=== PATIENT | male | born 1935 | race Caucasian/White ===

== ENCOUNTER 2016-11-18 14:07 | Inpatient (IN) ==
[2016-11-18] MEDS ORDERED: Ondansetron 4 MG/2 ML VIAL IVP PRN (16:44)
[2016-11-18] MEDS ORDERED: Acetaminophen 325 MG TABLET PO PRN (16:44)
[2016-11-18] MEDS ORDERED: Naloxone 0.4 MG/ML INJ IVP PRN (16:44)
[2016-11-18] MEDS ORDERED: Warfarin perPT PO PRN (18:00)
--- NOTE | 2016-11-18 19:01 | Internal Med History&Physical ---
Date of Encounter: 11/18/16 Time of Encounter: 17:00 Assessment and Plan (1) Slurred speech Current visit: Yes Status: Suspected Suspected TIA. CT head showed no acute abnormality. Patient is currently at baseline, asymptomatic. Continue to monitor. (2) Hypernatremia Current visit: Yes Status: Acute Likely due to dehydration and anorexia, possibly related to chronic kidney disease. Continue gentle hydration with half normal saline and monitor serum sodium and chloride. (3) Lysni-tr-xtyeygu renal failure Current visit: Yes Status: Chronic Serum creatinine noted to be gradually worsening over the last 6 months, currently at 3.5. Continue IV hydration, monitor serum creatinine closely. Hold diuretics for now given his dehydration. No hyperkalemia or acute respiratory failure/volume overload, no urgent indication for hemodialysis at this time. Continue oral bicarbonate and calcium carbonate. Nephrology consulted, follow-up full consult. Qualifiers: Acute renal failure type: unspecified Chronic kidney disease stage: stage 4 (severe) Qualified Code(s): N17.9 - Acute kidney failure, unspecified; N18.4 - Chronic kidney disease, stage 4 (severe) (4) Elevated troponin Current visit: Yes Status: Acute No ischemic EKG changes. Likely related to underlying chronic kidney disease and dehydration. Cycle troponins and continue telemetry monitoring. (5) COPD (chronic obstructive pulmonary disease) Current visit: Yes Status: Chronic Not noted to be in acute exacerbation. Continue when necessary bronchodilators , inhaled corticosteroids and supplemental oxygen as needed. Qualifiers: COPD type: unspecified COPD Qualified Code(s): J44.9 - Chronic obstructive pulmonary disease, unspecified (6) CAD (coronary artery disease) Current visit: Yes Status: Chronic Continue telemetry monitoring. Not noted to be on aspirin, beta britta or statin per his home medication list. Qualifiers: Coronary Disease-Associated Artery/Lesion type: bypass graft [place] vs. transplanted heart: [place] heart Associated angina: without angina Qualified Code(s): I25.810 - Atherosclerosis of coronary artery bypass graft(s) without angina pectoris (7) GERD (gastroesophageal reflux disease) Current visit: Yes Status: Chronic Qualifiers: Esophagitis presence: esophagitis presence not specified Qualified Code(s) : K21.9 - Gastro-esophageal reflux disease without esophagitis (8) Hypertension Current visit: Yes Status: Chronic Blood pressure noted to be fairly controlled. Will start beta britta if tolerated. Qualifiers: Hypertension type: essential hypertension Qualified Code(s): I10 - Essential (primary) hypertension (9) Chronic atrial fibrillation Current visit: Yes Status: Chronic Currently rate controlled. s/p pacemaker placement. Noted to be on long-term anticoagulation with Coumadin, INR 1.9 today. Continue Coumadin. (10) DM2 (diabetes mellitus, type 2) Current visit: Yes Status: Chronic Accu-Chek blood glucose monitoring with sliding scale insulin. Diabetic diet. Qualifiers: Diabetes mellitus complication status: with kidney complications Diabetes mellitus complication detail: with chronic kidney disease Diabetes mellitus longterm insulin use: without long term care pharmacist use Chronic kidney disease stage: stage 4 (severe) Qualified Code(s): E11.22 - Type 2 diabetes mellitus with diabetic chronic kidney disease; N18.4 - Chronic kidney disease, stage 4 (severe ) (11) CKD (chronic kidney disease), stage IV Current visit: Yes Status: Chronic (12) S/P cardiac pacemaker procedure Current visit: Yes Status: Chronic Internal Medicine - H&P: HPI Chief complaint: Slurred speech Admitted From: Emergency Dept Plans for Post Hospital Care: Transfer [facility] History of present illness: Mr. Michelle is a 81 year old male with h/o- CAD, CKD, copd who was sent from emergency room at [facility] for evaluation of strokelike symptoms. [facility] when the staff noticed that he had increased slurring of speech along with increased right-sided weakness of his hands and legs. Patient currently states that his main complaint is generalized weakness, fatigue and malaise along with intermittent tightness in his leg and shoulder and neck muscles while participating in physical therapy. No headache, blurred vision, paresthesias. Patient's daughter is at bedside and does not report any new slurred speech. Patient has been getting speech therapy for slurred speech although he has no history of stroke per his daughter. He was transferred to inpatient rehabilitation after an episode of severe pneumonia. Patient currently denies chest pain, shortness of breath, palpitations, dizziness or syncope. He does have poor oral intake for the last few days to weeks along with dehydration and worsening leg swelling. He follows with Dr. Jones for his chronic kidney disease. Past Med Surg Social Fam HX - Past Medical History Medical history: atrial fibrillation, CHF, COPD, coronary artery disease, diabetes, GERD, hypertension, myocardial infarction, renal disease, other Psychiatric history: no psych history - Past Surgical History Surgical History: appendectomy, cholecystectomy, coronary bypass (CABG), herniorrhaphy, other (Partial colectomy), pacemaker - Social History Smoking Status: Former smoker Smokeless Tobacco Status: No Alcohol use: none Drug use: none, other Occupational status: retired Current living situation: [facility] Activity Level: Uses cane/walker Recent Out of Country Travel Within the Last 8 Weeks: No - Family History Father Living Status: Hx Family Cardiac Disorders: No Hx Family Respiratory Disorders: Yes (COPD) Hx Family Cancer: No Hx Family GI Disorders: No Hx Family Genitourinary Disorders: No Hx Family Endocrine Disorder: No Hx Family Musculoskeletal Disorders: No Hx Family Neuromuscular Disorders: No Hx Family Neurologic Disorders: No Hx Family HEENT Disorders: No Hx Family Autoimmune Disorders: No Hx Family Reproductive Disorders: No Hx Family Psychosocial Disorders: No Hx Family Medical Disorders: No Daughter Living Status: Still Living Hx Family Cardiac Disorders: Yes (hypertension) Hx Family GI Disorders: Yes (IBS, Celiac disease, gallbladder) Mother Adopted: No Living Status: Hx Family Cardiac Disorders: Yes Hx Family Endocrine Disorder: Yes (Diabetes) Hx Family Neurologic Disorders: Yes (Alzheimer) Internal Medicine - H&P: Meds Magnesium Oxide [Mgo] 400 mg PO BID 03/05/15 [History] Tamsulosin [Flomax] 0.4 mg PO DAILY 03/05/15 [History] Budesonide/Formoterol 160/4.5 [Symbicort 160/4.5] 2 puff IH BIDR 07/27/15 [ History] Calcitriol 0.25 mcg PO DAILY 07/27/15 [History] Sodium Bicarbonate 650 mg PO BID 07/27/15 [History] Vit A/C/E AC/Znox/Cupric Oxide [Eye Vitamin-Minerals Tablet] 1 tab PO BID [History] Carboxymethylcellulose Sodium [Refresh Tears] 1 drop BOTH EYES QID 12/27/15 [ History] Fluticasone Propionate Nasal [Flonase] 1 spray NS DAILY 12/27/15 [History] Omeprazole [PriLOSEC] 40 mg PO DAILY PRN #30 capsule. 12/31/15 [Rx] Furosemide [Lasix] 20 mg PO DAILY 04/20/16 [History] Calcium Carbonate/Vitamin D3 [Calcium 600 + Vit D Tablet] 1 tab PO BID 10/28/16 [History] Ergocalciferol (VITAMIN D2) [Drisdol (50,000 Unit)] 50,000 unit PO QWEEK [History] Ondansetron ODT [Zofran ODT] 4 mg SL Q8HR 10/28/16 [History] Quetiapine Fumarate [Seroquel] 25 mg PO HS 10/28/16 [History] Cyanocobalamin (B-12) [Vitamin B12] 1,000 mcg PO DAILY 365 Days 10/31/16 [Rx] Benzonatate [Tessalon] 100 mg PO TID PRN 11/18/16 [History] Cetirizine HCl [All Day Allergy] 10 mg PO DAILY 11/18/16 [History] Ferrous Sulfate [Iron] 325 mg PO DAILY 11/18/16 [History] Lactobacillus [Culturelle] 1 cap PO BID 11/18/16 [History] Latanoprost [Xalatan] 1 drop BOTH EYES DAILY 11/18/16 [History] Warfarin [Coumadin] 3.5 mg PO 1800 11/18/16 [History] Allergies cephalexin [From Keflex] Allergy (Verified 12/26/15 12:36) Vomiting promethazine [From Phenergan] Adverse Reaction (Verified 10/28/16 07:29) See Comments Body jerking All Systems PM: A 10-system review of systems was performed and is negative for pertinent findings except as documented above in the HPI. - Constitutional Constitutional: anorexia, fatigue, malaise, weakness - EENT Eyes: no change in vision, no discharge, no pain, no photophobia Ears: no ear discharge, no ear pain, no tinnitus Nose, mouth and throat: no dysphagia, no nasal discharge, no neck pain, no sore throat - Cardiovascular Cardiovascular ROS IM: edema, no chest pain, no diaphoresis, no dyspnea, no lightheadedness, no palpitations, no syncope - Respiratory Respiratory: no cough, no dyspnea, no wheezing, no excessive phlegm production - Gastrointestinal Gastrointestinal: nausea, no abdominal pain, no diarrhea, no hematemesis, no hematochezia, no melena, no vomiting - Musculoskeletal Musculoskeletal ROS IM: muscle cramps, muscle weakness, stiffness, no numbness, no tingling - Integumentary Integumentary IM: no rash, no unusual bruising - Neurological Neurological ROS: abnormal speech, no confusion, no convulsions, no focal weakness, no numbness, no tingling, no tremor(s) - Hematologic/Lymphatic Hematologic/Lymphatic: no easy bruising - Constitutional Vitals: Temp Pulse Resp BP Pulse Ox 97.4 F L 89 16 151/80 100 11/18/16 15:38 11/18/16 15:38 11/18/16 15:38 11/18/16 15:38 11/18/16 15:38 General appearance: Present: A&O X 3, answers questions appropriately - Respiratory Respiratory exam: Present: CTAB. Absent: accessory muscle use, rales, rhonchi, wheezes - Cardiovascular Cardiovascular exam: Present: RRR, +S1, +S2. Absent: diastolic murmur, gallop, rubs, systolic murmur - GI/Abdominal GI/Abdominal exam: Present: normal bowel sounds, soft, no peritoneal signs. Absent: distended, tenderness - Extremities Exam Extremities exam: Present: full ROM, pedal edema (Bilateral 1+ pedal edema), warm, radial pulses palpable and symetrical. Absent: calf tenderness, cyanotic Additional comments: Left upper extremity with diffuse edema from mid arm to mid forearm - Neurological Exam Neurological exam: Present: CN II-XII intact, oriented X3, no focal deficits, strengths equal and symetr throughout (Motor power 4/5 in right lower extremity , otherwise 5/5 in other extremities). Absent: pronater drift, facial droop, speech deficit - Skin Skin exam: Present: dry, intact Internal Med - H&P Results - Labs Labs: Cardiac Enzymes 11/18/16 Range/Units 17:30 Troponin I 0.07 H* (0-0.03) ng/mL
[2016-11-18] MEDS: (Vit A/C/E Ac/Znox/Cupric Oxide [Eye Vitamin-Minerals) PO SCH (20:26)
[2016-11-18] MEDS: Budesonide/Formoterol 160/4.5 MDI IH SCH (21:58)
[2016-11-19 06:15] LABS: Basophils % 0.3 %; Eosinophils # 0.1 K/mcL (0.0-0.6); Eosinophils % 3.5 %; Hematocrit 24.1 % (37.5-50.1); Hemoglobin 7.4 g/dL (12.9-16.9); Immature Granulocytes % 0.3 % (0-4); Lymphocytes # 0.8 K/mcL (0.6-4.6); Lymphocytes % 18.9 %; Mean Corpuscular HGB Conc 30.7 g/dL (31.6-35.5); Mean Corpuscular Hemoglobin 30.5 pg (28.0-33.3); Mean Corpuscular Volume 99.2 fL (83.0-100.0); Mean Platelet Volume 10.2 fL (9.4-12.4); Monocytes # 0.2 K/mcL (0.0-1.3); Monocytes % 5.8 %; Neutrophils # 2.8 K/mcL (1.6-8.9); Platelet Count 144 K/mcL (140-400); Red Blood Count 2.43 M/mcL (4.19-5.50); Red Cell Distribution Width 14.7 % (11.5-14.5); Segmented Neutrophils % 71.2 %
[2016-11-19 06:17] LABS: INR 2.1; Prothrombin Time 22.7 Seconds (9.4-12.1)
[2016-11-19 06:33] LABS: Calcium 7.7 mg/dL (8.6-10.8); Magnesium 1.5 mg/dL (1.6-2.6); Potassium 3.9 mEq/L (3.5-4.5)
[2016-11-19] MEDS: Budesonide/Formoterol 160/4.5 MDI IH SCH ×2 (07:52→19:56)
[2016-11-19] MEDS: (Vit A/C/E Ac/Znox/Cupric Oxide [Eye Vitamin-Minerals) PO SCH ×2 (08:31→21:23)
[2016-11-19] MEDS: Cholecalciferol (D-3) 1,000 UNIT TABLET PO SCH (08:35)
[2016-11-19] MEDS ORDERED: Latanoprost 2.5 ML BOTTLE BOTH EYES SCH (09:00)
--- NOTE | 2016-11-19 10:45 | Nephrology Consult Note ---
Date of Encounter: 11/19/16 Time of Encounter: 10:41 Assessment and Plan (1) CKD (chronic kidney disease), stage IV Current Visit: Yes Status: Chronic Patient's baseline creatinine is 2.8-3.0. (2) Hypertension Current Visit: Yes Status: Chronic Blood pressure is controlled. Qualifiers: Hypertension type: essential hypertension Qualified Code(s): I10 - Essential (primary) hypertension (3) Acute kidney injury superimposed on CKD Current Visit: No Status: Acute Patient's baseline creatinine is around 2.8-3.0. He has had a gradual climb in his creatinine along with hypernatremia which suggests an intravascular depletion. Interestingly he has a general volume overload evidenced by lower extremity edema. Agree with gentle fluids, but would limit it to no more than an additional liter for today. Will check a renal ultrasound and urine sodium. Avoid nephrotoxic agents. Will also check an echocardiogram given his LE edema and GATO to assist with evaluating cardiac output. (4) Slurred speech Current Visit: Yes Status: Suspected Resolved. Etiology unclear. Per primary team. (5) Hypernatremia Current Visit: Yes Status: Acute Likely restriction of free water. Agree with hypotonic fluids and encouraging patient to increase his free water intake. (6) Anemia Current Visit: Yes Status: Acute hematology following. Qualifiers: Qualified Code(s): D64.9 - Anemia, unspecified History of Present Illness - Reason for Consult Consult date: 11/19/16 Acute Kidney Injury, Chronic Kidney Disease, hypernatremia - Chief Complaint GATO/CKD - History of Present Illness Mr. Michelle is an 81 yo man with CKD followed by Dr. Mcguire who presents to the hospital for the evaluation of slurred speech. Patient does not recall most of the details surrounding his admission. Per the admission H&P patient's symptoms had resolved at the time of admission, but he was found to have GATO/CKD and hypernatremia and [facility] were consulted to assist in management. At the time of evaluation the patient had no new complaint. He denies chest pain or shortness of breath. He recalls Dr. Mcguire asking him to increase his fluid intake which he has attempted to do. Past Med Surg Social Fam HX - Past Medical History Medical history: atrial fibrillation, CHF, COPD, coronary artery disease, diabetes, GERD, hypertension, myocardial infarction, renal disease, other Psychiatric history: no psych history - Past Surgical History Surgical History: appendectomy, cholecystectomy, coronary bypass (CABG), herniorrhaphy, other (Partial colectomy), pacemaker - Social History Smoking Status: Former smoker Smokeless Tobacco Status: No Alcohol use: none Drug use: none, other - Family History Father Living Status: Hx Family Cardiac Disorders: No Hx Family Respiratory Disorders: Yes (COPD) Hx Family Cancer: No Hx Family GI Disorders: No Hx Family Genitourinary Disorders: No Hx Family Endocrine Disorder: No Hx Family Musculoskeletal Disorders: No Hx Family Neuromuscular Disorders: No Hx Family Neurologic Disorders: No Hx Family HEENT Disorders: No Hx Family Autoimmune Disorders: No Hx Family Reproductive Disorders: No Hx Family Psychosocial Disorders: No Hx Family Medical Disorders: No Daughter Living Status: Still Living Hx Family Cardiac Disorders: Yes (hypertension) Hx Family GI Disorders: Yes (IBS, Celiac disease, gallbladder) Mother Adopted: No Living Status: Hx Family Cardiac Disorders: Yes Hx Family Endocrine Disorder: Yes (Diabetes) Hx Family Neurologic Disorders: Yes (Alzheimer) Medications and Allergies Magnesium Oxide [Mgo] 400 mg PO BID 03/05/15 [History] Tamsulosin [Flomax] 0.4 mg PO DAILY 03/05/15 [History] Budesonide/Formoterol 160/4.5 [Symbicort 160/4.5] 2 puff IH BIDR 07/27/15 [ History] Calcitriol 0.25 mcg PO DAILY 07/27/15 [History] Sodium Bicarbonate 650 mg PO BID 07/27/15 [History] Vit A/C/E AC/Znox/Cupric Oxide [Eye Vitamin-Minerals Tablet] 1 tab PO BID [History] Carboxymethylcellulose Sodium [Refresh Tears] 1 drop BOTH EYES QID 12/27/15 [ History] Fluticasone Propionate Nasal [Flonase] 1 spray NS DAILY 12/27/15 [History] Omeprazole [PriLOSEC] 40 mg PO DAILY PRN #30 capsule.dr 12/31/15 [Rx] Furosemide [Lasix] 20 mg PO DAILY 04/20/16 [History] Calcium Carbonate/Vitamin D3 [Calcium 600 + Vit D Tablet] 1 tab PO BID 10/28/16 [History] Ergocalciferol (VITAMIN D2) [Drisdol (50,000 Unit)] 50,000 unit PO QWEEK [History] Ondansetron ODT [Zofran ODT] 4 mg SL Q8HR 10/28/16 [History] Quetiapine Fumarate [Seroquel] 25 mg PO HS 10/28/16 [History] Cyanocobalamin (B-12) [Vitamin B12] 1,000 mcg PO DAILY 365 Days 10/31/16 [Rx] Benzonatate [Tessalon] 100 mg PO TID PRN 11/18/16 [History] Cetirizine HCl [All Day Allergy] 10 mg PO DAILY 11/18/16 [History] Ferrous Sulfate [Iron] 325 mg PO DAILY 11/18/16 [History] Lactobacillus [Culturelle] 1 cap PO BID 11/18/16 [History] Latanoprost [Xalatan] 1 drop BOTH EYES DAILY 11/18/16 [History] Warfarin [Coumadin] 3.5 mg PO 1800 11/18/16 [History] Allergies cephalexin [From Keflex] Allergy (Verified 12/26/15 12:36) Vomiting promethazine [From Phenergan] Adverse Reaction (Verified 10/28/16 07:29) See Comments Body jerking Review of Systems All Systems: reviewed and no additional remarkable complaints except as stated ( as documented by the HPI.) Exam - Vital Signs Vital signs: Initial Vital Signs Temp Pulse Resp BP Pulse Ox 97.4 F L 89 16 151/80 100 11/18/16 15:38 11/18/16 15:38 11/18/16 15:38 11/18/16 15:38 11/18/16 15:38 Vital Signs - Last 8 Hours Temp Pulse Resp BP Pulse Ox 11/19/16 07:53 17 98 11/19/16 07:37 97.9 F 88 18 133/71 97 11/19/16 04:21 97.7 F 85 18 152/75 99 Intake and Output 11/18/16 11/19/16 11/19/16 23:59 07:59 15:59 Intake Total 1120 / 1120 260 / 260 Output Total 550 / 550 Balance -550 / -550 1120 / 1120 260 / 260 Intake: IV Fluids 1000 / 1000 0.45% Sodium Chloride 1000 / 1000 1000 Ml 1000 Ml 1,000 ML @ 60 mls/hr IVC .[id number] ERIKA Rx#:[id number] Oral 120 / 120 260 / 260 Output: Urine 550 / 550 Other: Meal Breakfast Percent of Meal Consumed 100% Stool Size Moderate Large Stool Consistency soft liquid Stool Color Brown Christ Colored # Voids 1 # Bowel Movements 1 1 Weight 63.6 kg Blood Glucose* 176 83 Patient Weight 11/19/16 23:59 Weight 63.6 kg - General Appearance General appearance: well-developed, well-nourished, chronically ill EENT: ATNC Neck: supple Respiratory: clear Cardiology: edema (1-2+ edema in the bilateral lower extremities. ), regular rate, regular rhythm Gastrointestinal: no tenderness Integumentary: warm and dry Neurologic: alert and oriented x3 Additional Comments: very talkative. Musculoskeletal: no cyanosis Psychiatric: mood/affect appropriate Results - Lab Results 11/19/16 05:02 11/19/16 05:02 Most recent lab results Calcium 7.7 mg/dL (8.6-10.8) L 11/19/16 05:02 Magnesium 1.5 mg/dL (1.6-2.6) L 11/19/16 05:02 Consult Discharge Plan - Plan Referrals: Thom Donnelly MD [Primary Care Provider] -
--- NOTE | 2016-11-19 14:06 | Internal Med Progress Note ---
Date of Encounter: 11/19/16 Time of Encounter: 13:30 - Assessment and plan (1) GATO (acute kidney injury) Current Visit: Yes Status: Acute Assessment and plan: Nephrology on board. Appreciate input and assistance. Continue gentle intravenous fluid hydration. Monitor renal function and urine output. Avoid nephrotoxic agents and hypotension. Patient is high risk due to unresolved acute kidney injury and he is at risk of worsening renal function which may require hemodialysis. (2) COPD (chronic obstructive pulmonary disease) Current Visit: Yes Status: Acute Assessment and plan: Stable. Continue home medications. Qualifiers: COPD type: unspecified COPD Qualified Code(s): J44.9 - Chronic obstructive pulmonary disease, unspecified (3) CAD (coronary artery disease) Current Visit: Yes Status: Chronic Assessment and plan: Patient had mildly elevated troponins. He was on aspirin before but he has not been getting it at the rehabilitation facility. Hold aspirin for now due to his anemia. He has not been on statin. He was encouraged to discuss the same with his primary care physician. Check echocardiogram to evaluate cardiac function. Qualifiers: Coronary Disease-Associated Artery/Lesion type: bypass graft [place] vs. transplanted heart: [place] heart Associated angina: without angina Qualified Code(s): I25.810 - Atherosclerosis of coronary artery bypass graft(s) without angina pectoris (4) Chronic atrial fibrillation Current Visit: Yes Status: Chronic Assessment and plan: Rate controlled. Continue rate control medications. Continue Coumadin for anticoagulation. (5) DM2 (diabetes mellitus, type 2) Current Visit: Yes Status: Chronic Assessment and plan: Well controlled blood sugar. Continue diabetic diet and sliding scale insulin. 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 Qualifiers: Esophagitis presence: esophagitis presence not specified Qualified Code(s) : K21.9 - Gastro-esophageal reflux disease without esophagitis (7) Hypertension Current Visit: Yes Status: Chronic Assessment and plan: Controlled blood pressure. Continue current medications. Avoid hypotension due to his acute kidney injury. Qualifiers: Hypertension type: essential hypertension Qualified Code(s): I10 - Essential (primary) hypertension - Subjective Interval history: Patient states that he feels much better than compared to at admission time. He reports making urine and good urine output. He denies any nausea or vomiting or feeling lightheaded. He reports swelling in his legs. Denies any nausea or vomiting. - Constitutional Vitals: Temp Pulse Resp BP Pulse Ox 97.6 F 88 16 139/76 97 11/19/16 11:02 11/19/16 11:02 11/19/16 11:02 11/19/16 11:02 11/19/16 11:02 General appearance: Present: A&O X 3, answers questions appropriately Exam: Gen.: Lying in bed. No acute distress. Chest: Clear to auscultation bilaterally. No adventitious sounds present. CVS: First and second heart sounds present. No murmurs, rubs or gallops. 3+ bilateral pitting pedal edema. Abdomen: Soft, nontender, nondistended. Bowel sounds present. No hepatosplenomegaly. Skin: No decubitus ulcers appreciated. Internal Medicine: Result - Labs CBC & Chem 7: 11/19/16 05:02 11/19/16 05:02 Labs: Short CBC 11/19/16 Range/Units 05:02 WBC 4.0 L (4.3-11.1) K/mcL Hgb 7.4 L (12.9-16.9) g/dL Hct 24.1 L (37.5-50.1) % Plt Count 144 (140-400) K/mcL Neutrophils # 2.8 (1.6-8.9) K/mcL BMP 11/19/16 05:02 Sodium 147 H Potassium 3.9 Chloride 120 H Carbon Dioxide 21 BUN 78 H Creatinine 3.57 H Glucose 85 Calcium 7.7 L Cardiac Enzymes 11/18/16 11/18/16 11/19/16 Range/Units 17:30 23:17 05:02 Troponin I 0.07 H* 0.06 H* 0.08 H* (0-0.03) ng/mL - ABG Interpretation ABG results: PT/INR, D-dimer PT 22.7 Seconds (9.4-12.1) H 11/19/16 05:02 Consult Discharge Plan - Plan Referrals: Thom Donnelly MD [Primary Care Provider] -
[2016-11-19] MEDS: Latanoprost 2.5 ML BOTTLE BOTH EYES SCH (21:22)
[2016-11-19] MEDS: Magnesium Oxide 400 MG TABLET PO SCH (21:23)
[2016-11-20 04:49] LABS: Basophils % 0.3 %; Eosinophils # 0.1 K/mcL (0.0-0.6); Eosinophils % 3.1 %; Hematocrit 20.8 % (37.5-50.1); Hemoglobin 6.5 g/dL (12.9-16.9); Immature Granulocytes % 0.3 % (0-4); Lymphocytes # 0.6 K/mcL (0.6-4.6); Lymphocytes % 16.3 %; Mean Corpuscular HGB Conc 31.3 g/dL (31.6-35.5); Mean Corpuscular Hemoglobin 31.4 pg (28.0-33.3); Mean Corpuscular Volume 100.5 fL (83.0-100.0); Mean Platelet Volume 10.7 fL (9.4-12.4); Monocytes # 0.3 K/mcL (0.0-1.3); Monocytes % 7.4 %; Neutrophils # 2.5 K/mcL (1.6-8.9); Platelet Count 116 K/mcL (140-400); Red Blood Count 2.07 M/mcL (4.19-5.50); Red Cell Distribution Width 14.6 % (11.5-14.5); Segmented Neutrophils % 72.6 %
[2016-11-20 04:58] LABS: INR 2.5; Prothrombin Time 27.6 Seconds (9.4-12.1)
[2016-11-20 05:01] LABS: Ionized Calcium 1.08 mmol/L (1.15-1.35)
[2016-11-20 05:13] LABS: Magnesium 1.2 mg/dL (1.6-2.6); Phosphorous 4.2 mg/dL (2.3-4.7)
[2016-11-20 05:16] LABS: Albumin 1.7 g/dL (3.5-5.0); Albumin/Globulin Ratio 0.8 (1.1-2.2); Bilirubin,Total 0.2 mg/dL (0.2-1.2); Calcium 7.4 mg/dL (8.6-10.8); Globulin 2.2 g/dL (2.4-3.5); Potassium 3.9 mEq/L (3.5-4.5); Total Protein 3.9 g/dL (6.0-8.3)
[2016-11-20] MEDS: Magnesium Oxide 400 MG TABLET PO SCH (08:27)
[2016-11-20] MEDS: Cholecalciferol (D-3) 1,000 UNIT TABLET PO SCH (08:27)
[2016-11-20] MEDS: Budesonide/Formoterol 160/4.5 MDI IH SCH ×2 (10:58→20:52)
[2016-11-20 11:19] LABS: Bilirubin,Urine Negative (Negative); Blood,Urine Negative (Negative); Clarity,Urine Clear (Clear); Color,Urine Yellow (Yellow); Glucose,Urine (UA) Normal (Normal); Ketones,Urine Negative (Negative); Leukocyte Esterase,Urine Trace (Negative); Nitrite,Urine Negative (Negative); Protein,Urine Trace mg/dL (Neg-Trace); Specific Gravity,Urine 1.016 (1.010-1.025); Urobilinogen,Urine Normal (Normal)
--- NOTE | 2016-11-20 11:30 | Nephrology Progress Note ---
Date of Encounter: 11/20/16 Time of Encounter: 11:37 - Assessment and Plan (1) Acute kidney injury superimposed on CKD Current Visit: Yes Status: Acute Kidney function worsening after administration of fluids. While patient is fluid overloaded he is intravascularly dry. Hypoalbuminemia: albumin level 1.7 Echocardiogram shows worse EF 40-45%. Previously was 60%. In settinf of elevated troponin. Hgb worsening now 6.5 Hypernatremia resolved. Urine sodium 79 Plan: Patient has high urine sodium and hyponatremia is resolved. GATO worsening in setting of improved BUN. May benefit from [facility] transfusion or albumin. Hgb dropping: GI bleed? Has nose bleed. Worsening heart function: EF decreased from previous. May need further evaluation by cardiology. Urine protein to creatinine ratio pending. Avoid nephrotoxins: NSAIDs, contrast Continue renal protective/ conservative strategy. (2) Slurred speech Current Visit: Yes Status: Resolved (3) Hypernatremia Current Visit: Yes Status: Resolved (4) Anemia Current Visit: Yes Status: Acute Qualifiers: Anemia type: unspecified type Qualified Code(s): D64.9 - Anemia, unspecified (5) CKD (chronic kidney disease), stage IV Current Visit: Yes Status: Chronic Subjective Principal diagnosis: GATO Interval history: NO problems overnight. Denies N/V/D. Had nose bleed. Denies hemoptysis. Objective - Vital Signs Vital signs: Vital Signs Temp Pulse Resp BP Pulse Ox 11/20/16 10:59 18 98 11/20/16 07:01 98.1 F 90 18 124/63 98 11/20/16 04:42 98 F 83 18 121/64 96 11/20/16 00:01 98 F 89 16 117/65 96 11/19/16 20:31 97.7 F 101 18 153/81 97 11/19/16 19:56 18 92 11/19/16 17:03 99.6 F 71 17 145/75 93 Intake and Output 11/19/16 11/20/16 11/20/16 23:59 07:59 15:59 Intake Total 1000 / 1000 Output Total 150 / 150 200 / 200 Balance 850 / 850 -200 / -200 Intake: IV Fluids 1000 / 1000 Output: Urine 150 / 150 200 / 200 Other: Stool Size Moderate Moderate Stool Consistency soft soft Stool Color Brown Brown # Voids 1 1 # Bowel Movements 1 1 Weight 64.4 kg Blood Glucose* 172 128 Patient Weight 11/20/16 23:59 Weight 64.4 kg - General Appearance General appearance: Present: appears started age, cachectic Neck: Present: no JVD Respiratory: Present: clear Cardiology: Present: edema (1+), regular rate, regular rhythm, normal S1, normal S2 Gastrointestinal: Present: normoactive bowel sounds, no tenderness Integumentary: Present: no rash, warm and dry Neurologic: Present: no focal deficit, no asterixis, alert and oriented x3 Musculoskeletal: Present: no deformities, no erythema, no cyanosis, no clubbing Psychiatric: Present: mood/affect appropriate, cooperative - Lab 11/20/16 04:23 11/20/16 04:23 Most recent lab results Calcium 7.4 mg/dL (8.6-10.8) L 11/20/16 04:23 Phosphorus 4.2 mg/dL (2.3-4.7) 11/20/16 04:23 Magnesium 1.2 mg/dL (1.6-2.6) L 11/20/16 04:23 Urine Sodium 79.0 mEq/L 11/20/16 11:00 Consult Discharge Plan - Plan Referrals: Thom Donnelly MD [Primary Care Provider] - (patient will follow up with f pcp)
[2016-11-20 11:34] LABS: Bacteria,Urine Few per hpf (None-Few); Squamous Epithelial Cell,Urine Few per lpf (None-Few); WBC,Urine 0-3 per hpf (0-3)
[2016-11-20] MEDS ORDERED: Magnesium Sulfate 2 GM in D5% in Water 100 ML IVPB ONE (13:37)
[2016-11-20] MEDS ORDERED: 0.9 % Sodium Chloride 250 ML ONE ×2 (14:18→18:46)
--- NOTE | 2016-11-20 14:58 | Cardiology Consult Note ---
Date of Encounter: 11/20/16 Time of Encounter: 14:55 Assessment and Plan (1) Acute systolic CHF (congestive heart failure) Current Visit: Yes Status: Acute TTE shows new mildly reduced LVEF at 45-50%. Borderline low with no segmental wall motion abnormalities. Mild LVH. Diastolic dysfunction. TTE 07/26/16: EF 60%. Fluid overload on exam. Reviewed nephrology note. Patient presented with dehydration. Thought to be intravascularly dry. Lasix on hold. I will order BLE leg wraps. Start bb. No ACEi with worsening kidney function. Patient is not a candidate for invasive evaluation due to acute anemia, possible GI bleed, and worsening kidney function. (2) CAD (coronary artery disease) Current Visit: Yes Status: Chronic H/o CABG in 2010. Add bb and statin. Consider asa once acute anemia resolved. Qualifiers: Coronary Disease-Associated Artery/Lesion type: bypass graft [place] vs. transplanted heart: [place] heart Associated angina: without angina Qualified Code(s): I25.810 - Atherosclerosis of coronary artery bypass graft(s) without angina pectoris (3) Chronic atrial fibrillation Current Visit: Yes Status: Chronic H/o chronic afib. Currently HR in the 's. Adding bb for CHF and CAD history. Discussed ablation in the out-pt setting and pt declined. Hold coumadin for possible GI bleed / anemia requiring blood transfusion. Restart once felt to be safe from a bleeding standpoint. Discussion w patient/family: The assessment and plan as outlined above was discussed with the patient and/or family members who expressed understanding and agreement. All questions were answered. Thank you for involving us in the care of your patient. Please call with any questions. History of Present Illness Consult date: 11/20/16 Requesting physician: Jose Wylie Consult reason: New cardiomyoapthy Chief complaint: Weakness, AMS, SOB History of present illness: Mr. Michelle is a 81 year old male with a history of CAD s/p CABG in 2010, atrial fibrillation on coumadin, PPM for bradycardia, COPD, and CKD who presented from [facility] with weakness and confusion. He was found to have worsening kidney function, acute on chronic anemia, and possible UTI. On my exam he is alert and oriented. He also c/o SOB and BLE for one month. He was having his legs wrapped at the ECF. His edema would resolve when they were wrapped. Cardiology consulted for newly mild reduction in LVEF. TTE revealed EF reduced at 45-50%, no segmental wall motion abnormalities. He denies chest pain or palpitations. He is found to have acute anemia with HGB at 6.5 today. He denies melena or bloody emesis. C/o nose bleeds. He is currently receiving blood. Past Med Surg Social Fam HX - Past Medical History Medical history: atrial fibrillation, CHF, COPD, coronary artery disease, diabetes, GERD, hypertension, myocardial infarction, renal disease, other Psychiatric history: no psych history - Past Surgical History Surgical History: appendectomy, cholecystectomy, coronary bypass (CABG), herniorrhaphy, other (Partial colectomy), pacemaker - Social History Smoking Status: Former smoker Smokeless Tobacco Status: No Alcohol use: none Drug use: none, other - Family History Father Living Status: Hx Family Cardiac Disorders: No Hx Family Respiratory Disorders: Yes (COPD) Hx Family Cancer: No Hx Family GI Disorders: No Hx Family Genitourinary Disorders: No Hx Family Endocrine Disorder: No Hx Family Musculoskeletal Disorders: No Hx Family Neuromuscular Disorders: No Hx Family Neurologic Disorders: No Hx Family HEENT Disorders: No Hx Family Autoimmune Disorders: No Hx Family Reproductive Disorders: No Hx Family Psychosocial Disorders: No Hx Family Medical Disorders: No Daughter Living Status: Still Living Hx Family Cardiac Disorders: Yes (hypertension) Hx Family GI Disorders: Yes (IBS, Celiac disease, gallbladder) Mother Adopted: No Living Status: Hx Family Cardiac Disorders: Yes Hx Family Endocrine Disorder: Yes (Diabetes) Hx Family Neurologic Disorders: Yes (Alzheimer) Medications and Allergies Magnesium Oxide [Mgo] 400 mg PO BID 03/05/15 [History] Tamsulosin [Flomax] 0.4 mg PO DAILY 03/05/15 [History] Budesonide/Formoterol 160/4.5 [Symbicort 160/4.5] 2 puff IH BIDR 07/27/15 [ History] Calcitriol 0.25 mcg PO DAILY 07/27/15 [History] Sodium Bicarbonate 650 mg PO BID 07/27/15 [History] Vit A/C/E AC/Znox/Cupric Oxide [Eye Vitamin-Minerals Tablet] 1 tab PO BID [History] Carboxymethylcellulose Sodium [Refresh Tears] 1 drop BOTH EYES QID 12/27/15 [ History] Fluticasone Propionate Nasal [Flonase] 1 spray NS DAILY 12/27/15 [History] Omeprazole [PriLOSEC] 40 mg PO DAILY PRN #30 capsule. 12/31/15 [Rx] Furosemide [Lasix] 20 mg PO DAILY 04/20/16 [History] Calcium Carbonate/Vitamin D3 [Calcium 600 + Vit D Tablet] 1 tab PO BID 10/28/16 [History] Ergocalciferol (VITAMIN D2) [Drisdol (50,000 Unit)] 50,000 unit PO QWEEK [History] Ondansetron ODT [Zofran ODT] 4 mg SL Q8HR 10/28/16 [History] Quetiapine Fumarate [Seroquel] 25 mg PO HS 10/28/16 [History] Cyanocobalamin (B-12) [Vitamin B12] 1,000 mcg PO DAILY 365 Days 10/31/16 [Rx] Benzonatate [Tessalon] 100 mg PO TID PRN 11/18/16 [History] Cetirizine HCl [All Day Allergy] 10 mg PO DAILY 11/18/16 [History] Ferrous Sulfate [Iron] 325 mg PO DAILY 11/18/16 [History] Lactobacillus [Culturelle] 1 cap PO BID 11/18/16 [History] Latanoprost [Xalatan] 1 drop BOTH EYES DAILY 11/18/16 [History] Warfarin [Coumadin] 4 mg PO SUMOWETHFR@1800 11/20/16 [History] Warfarin [Coumadin] 6 mg PO TUSA@1800 11/20/16 [History] Allergies cephalexin [From Keflex] Allergy (Verified 12/26/15 12:36) Vomiting promethazine [From Phenergan] Adverse Reaction (Verified 10/28/16 07:29) See Comments Body jerking All Systems Review: A 10-system review of systems was performed and is negative for pertinent findings except as documented above in the HPI. Physical Examination Vital Signs, Last 4 Hours Temp Pulse Resp BP Pulse Ox 11/20/16 14:48 99.2 F 98 18 144/78 100 11/20/16 11:05 97.7 F 91 16 131/75 100 11/20/16 10:59 18 98 General: Conversant, No Apparent Distress, Other (Frail elderly male) HEENT: Atraumatic, Normocephaly, Mucus Membranes Moist Neck: No JVD, Normal carotid pulses Cardiac: Other (Irregularly irregular.) Lungs: Normal Breath Sounds, No Wheeze, Rales, Rhonchi Neuro: Alert and responsive, No focal deficits noted Abdomen: Soft, Non-Tender Skin: No rashes noted on visualized skin Musculoskeletal: No Chest Wall Tenderness Extremities: No Clubbing, No Cyanosis, Normal Pulses, Other (2+ BLE from knees down.) Results 11/20/16 04:23 11/20/16 04:23 Lab Results 11/20/16 11/20/16 11/20/16 04:23 04:23 04:23 WBC 3.5 L Hgb 6.5 L Hct 20.8 L Plt Count 116 L INR 2.5 Sodium 144 Potassium 3.9 Chloride 119 H Carbon Dioxide 20 BUN 72 H Creatinine 3.86 H Glucose 142 H Calcium 7.4 L Magnesium Total Bilirubin 0.2 AST 10 ALT 9 Alkaline Phosphatase 100 11/20/16 04:23 WBC Hgb Hct Plt Count INR Sodium Potassium Chloride Carbon Dioxide BUN Creatinine Glucose Calcium Magnesium 1.2 L Total Bilirubin AST ALT Alkaline Phosphatase - Imaging and Cardiology Echo: report reviewed - EKG Interpretation EKG results cardiology: personally reviewed (Ventricular pacing) Consult Discharge Plan - Plan Referrals: Thom Donnelly MD [Primary Care Provider] - (patient will follow up with [facility] pcp)
--- NOTE | 2016-11-20 15:39 | Internal Med Progress Note ---
Date of Encounter: 11/20/16 Time of Encounter: 15:38 - Assessment and plan (1) GATO (acute kidney injury) Current Visit: Yes Status: Acute Assessment and plan: Nephrology on board. Case DW nephrology Suspected ATN as cause of renal failure. Mgmt. per nephrology. F/u renal US Monitor renal function and urine output. Avoid nephrotoxic agents and hypotension. Patient is high risk due to unresolved acute kidney injury and he is at risk of worsening renal function which may require hemodialysis. (2) COPD (chronic obstructive pulmonary disease) Current Visit: Yes Status: Acute Assessment and plan: Stable. Continue home medications. Qualifiers: COPD type: unspecified COPD Qualified Code(s): J44.9 - Chronic obstructive pulmonary disease, unspecified (3) CAD (coronary artery disease) Current Visit: Yes Status: Chronic Assessment and plan: Case DW cardiology No further work up now due to renal failure and anemia Qualifiers: Coronary Disease-Associated Artery/Lesion type: bypass graft [place] vs. transplanted heart: [place] heart Associated angina: without angina Qualified Code(s): I25.810 - Atherosclerosis of coronary artery bypass graft(s) without angina pectoris (4) Chronic atrial fibrillation Current Visit: Yes Status: Chronic Assessment and plan: Rate controlled. Continue rate control medications. Possible ablation in out patient setting per cardiology Continue Coumadin for anticoagulation. (5) DM2 (diabetes mellitus, type 2) Current Visit: Yes Status: Chronic Assessment and plan: Well controlled blood sugar. Continue diabetic diet and sliding scale insulin. Qualifiers: Diabetes mellitus complication status: with kidney complications Diabetes mellitus complication detail: with chronic kidney disease Diabetes mellitus [facility] insulin use: without intermediate accountant use Chronic kidney disease stage: stage 4 (severe) Qualified Code(s): E11.22 - Type 2 diabetes mellitus with diabetic chronic kidney disease; N18.4 - Chronic kidney disease, stage 4 (severe ) (6) GERD (gastroesophageal reflux disease) Current Visit: Yes Status: Chronic Assessment and plan: Proton inhibitor. Qualifiers: Esophagitis presence: esophagitis presence not specified Qualified Code(s) : K21.9 - Gastro-esophageal reflux disease without esophagitis (7) Hypertension Current Visit: Yes Status: Chronic Assessment and plan: Controlled blood pressure. Continue current medications. Avoid hypotension due to his acute kidney injury. Qualifiers: Hypertension type: essential hypertension Qualified Code(s): I10 - Essential (primary) hypertension (8) CHF (congestive heart failure) Current Visit: Yes Status: Acute Assessment and plan: Intravascular volume depletion and hence, lasix on hold Strict I/Os. Monitor renal function, urine output and dialy wts. Appreciate cardiology input Qualifiers: Congestive heart failure type: combined Congestive heart failure chronicity : acute Qualified Code(s): I50.41 - Acute combined systolic (congestive) and diastolic (congestive) heart failure (9) Anemia Current Visit: Yes Status: Acute Assessment and plan: Transfuse 2 units PRBCs Out patient hematology follow up Check FOBT Qualifiers: Anemia type: unspecified type Qualified Code(s): D64.9 - Anemia, unspecified - Subjective Interval history: Pt. states he feels well and is making urine with good output. No CP, SOB, cough or wheezing. - Constitutional Vitals: Temp Pulse Resp BP Pulse Ox 98.6 F 96 18 140/76 99 11/20/16 15:15 11/20/16 15:15 11/20/16 15:15 11/20/16 15:15 11/20/16 15:15 General appearance: Present: cooperative, answers questions appropriately - Respiratory Respiratory exam: Present: CTAB. Absent: accessory muscle use, rales, rhonchi, wheezes - Cardiovascular Cardiovascular exam: Present: RRR, +S1, +S2. Absent: diastolic murmur, gallop, rubs, systolic murmur Additional comments: 3+ bilateral pitting pedal edema Internal Medicine: Result - Labs CBC & Chem 7: 11/20/16 04:23 11/20/16 04:23 Labs: Short CBC 11/20/16 Range/Units 04:23 WBC 3.5 L (4.3-11.1) K/mcL Hgb 6.5 L (12.9-16.9) g/dL Hct 20.8 L (37.5-50.1) % Plt Count 116 L (140-400) K/mcL Neutrophils # 2.5 (1.6-8.9) K/mcL BMP 11/20/16 04:23 Sodium 144 Potassium 3.9 Chloride 119 H Carbon Dioxide 20 BUN 72 H Creatinine 3.86 H Glucose 142 H Calcium 7.4 L Liver Function 11/20/16 Range/Units 04:23 Total Bilirubin 0.2 (0.2-1.2) mg/dL AST 10 (5-34) Units/L ALT 9 (0-55) Units/L Alkaline Phosphatase 100 (38-126) Units/L Albumin 1.7 L (3.5-5.0) g/dL Urine 11/20/16 Range/Units 11:00 Urine Color Yellow (Yellow) Urine Clarity Clear (Clear) Urine pH 6.0 (5.0-8.0) pH Units Ur Specific [place] 1.016 (1.010-1.025) Urine Protein Trace (Neg-Trace) mg/dL Urine Glucose (UA) Normal (Normal) mg/dL - ABG Interpretation ABG results: PT/INR, D-dimer PT 27.6 Seconds (9.4-12.1) H 11/20/16 04:23 - Impressions Impressions Retroperitoneum Ultrasound 11/20/16 13:00 IMPRESSION: 1. No acute sonographic abnormality of the kidneys. 2. Unremarkable sonographic appearance of the urinary bladder without evidence of a significant postvoid residual. 3. Prostatomegaly. D/ / Kwabena Stephen MD / Kwabena Stephen MD Interpreting Provider: Kwabena Stephen MD Consult Discharge Plan - Plan Referrals: Thom Donnelly MD [Primary Care Provider] - (patient will follow up with [facility] pcp)
[2016-11-20] MEDS: Metoprolol XL (24 HR) Succ 25 MG TAB.ER.24H PO SCH (16:33)
[2016-11-20] MEDS: (Vit A/C/E Ac/Znox/Cupric Oxide [Eye Vitamin-Minerals) PO SCH (17:59)
[2016-11-20 19:30] LABS: Protein/Creatinine Ratio,Urine 0.16 mg/mg (0-0.20)
[2016-11-20] MEDS: Latanoprost 2.5 ML BOTTLE BOTH EYES SCH (21:27)
[2016-11-21 05:45] LABS: Basophils % 0.3 %; Eosinophils # 0.1 K/mcL (0.0-0.6); Eosinophils % 2.8 %; Hematocrit 28.6 % (37.5-50.1); Immature Granulocytes % 0.6 % (0-4); Lymphocytes # 0.6 K/mcL (0.6-4.6); Lymphocytes % 16.2 %; Mean Corpuscular HGB Conc 31.8 g/dL (31.6-35.5); Mean Corpuscular Hemoglobin 30.6 pg (28.0-33.3); Mean Corpuscular Volume 96.3 fL (83.0-100.0); Mean Platelet Volume 10.8 fL (9.4-12.4); Monocytes # 0.3 K/mcL (0.0-1.3); Monocytes % 8.4 %; Neutrophils # 2.6 K/mcL (1.6-8.9); Nucleated Red Blood Cells 0.6 /100 WBC (0); Platelet Count 130 K/mcL (140-400); Red Blood Count 2.97 M/mcL (4.19-5.50); Red Cell Distribution Width 15.8 % (11.5-14.5); Segmented Neutrophils % 71.7 %
[2016-11-21 05:53] LABS: Hemoglobin 9.1 g/dL (12.9-16.9)
[2016-11-21 05:54] LABS: Calcium 7.4 mg/dL (8.6-10.8); Potassium 4.1 mEq/L (3.5-4.5)
[2016-11-21] MEDS: Cholecalciferol (D-3) 1,000 UNIT TABLET PO SCH (08:19)
[2016-11-21] MEDS: Metoprolol XL (24 HR) Succ 25 MG TAB.ER.24H PO SCH (08:19)
--- NOTE | 2016-11-21 09:42 | Nephrology Progress Note ---
Date of Encounter: 11/21/16 Time of Encounter: 09:40 - Assessment and Plan (1) Acute kidney injury superimposed on CKD Current Visit: Yes Status: Acute Scr better at 3.50 GFR improved to 17 Returning to baseline kidney function UOP improving 700ml yesterday Avoid nephrotoxins (2) Anemia Current Visit: Yes Status: Acute Hgb better at 9.1 after 2 units PRBC Patient states he has a history of anemia-"goes across the street for iron infusions" per patient Goal hgb 10-11 Transfuse per parameters Qualifiers: Anemia type: unspecified type Qualified Code(s): D64.9 - Anemia, unspecified (3) CKD (chronic kidney disease), stage IV Current Visit: Yes Status: Chronic Will continue to watch Scr to see if patient returns to previous baseline or if this is his new baseline. Continue renal diet Avoid nephrotoxins if possible Subjective Principal diagnosis: GATO Interval history: Patient seen and examined. States he is feeling pretty good today. Objective - Vital Signs Vital signs: Vital Signs Temp Pulse Resp BP Pulse Ox 11/21/16 07:07 98.3 F 73 16 120/66 97 11/21/16 03:42 98.3 F 73 18 125/61 98 11/21/16 00:03 98.0 F 72 15 105/60 96 11/20/16 22:14 98.2 F 79 16 132/73 98 11/20/16 20:55 16 95 11/20/16 20:54 97.5 F L 82 18 145/83 99 11/20/16 19:15 98.1 F 14 129/75 100 11/20/16 19:12 97.2 F L 18 121/69 99 11/20/16 19:00 97.2 F L 78 18 121/69 99 11/20/16 16:12 98.2 F 85 20 125/75 100 11/20/16 15:15 98.6 F 96 18 140/76 99 11/20/16 14:48 99.2 F 98 18 144/78 100 11/20/16 11:05 97.7 F 91 16 131/75 100 11/20/16 10:59 18 98 Intake and Output 11/20/16 11/21/16 11/21/16 23:59 07:59 15:59 Intake Total 1676 / 1676 120 / 120 Output Total 500 / 500 600 / 600 Balance 1176 / 1176 -480 / -480 Intake: Oral 1020 / 1020 120 / 120 Blood Product 656 / 656 Rbcs Leuko Poor As-1 656 / 656 Unit [id number] Output: Urine 500 / 500 200 / 200 Stool 400 / 400 Other: Meal Dinner Percent of Meal Consumed 100% Stool Size Moderate Large Stool Consistency soft soft Stool Characteristics Pasty Stool Color Brown Christ Colored # Bowel Movements 1 Weight 64.7 kg Blood Glucose* 162 141 Patient Weight 11/21/16 23:59 Weight 64.7 kg - General Appearance General appearance: Present: frail EENT: Present: ATNC, mucous membranes moist, hearing intact, vision intact Neck: Present: supple Respiratory: Present: clear Cardiology: Present: edema, normal S1, normal S2 Gastrointestinal: Present: no tenderness, no guarding Integumentary: Present: warm and dry Neurologic: Present: alert and oriented x3 Psychiatric: Present: mood/affect appropriate, cooperative - Lab 11/21/16 04:01 11/21/16 04:01 Most recent lab results Calcium 7.4 mg/dL (8.6-10.8) L 11/21/16 04:01 Phosphorus 4.2 mg/dL (2.3-4.7) 11/20/16 04:23 Magnesium 1.2 mg/dL (1.6-2.6) L 11/20/16 04:23 Urine Creatinine 55 mg/dL 11/20/16 11:00 Urine Sodium 79.0 mEq/L 11/20/16 11:00 Urine Total Protein 9 mg/dL (1-14) 11/20/16 11:00 Consult Discharge Plan - Plan Referrals: Thom Donnelly MD [Primary Care Provider] - (patient will follow up with [facility] pcp)
--- NOTE | 2016-11-21 10:08 | Internal Med Progress Note ---
<Curry Styles - Last Filed: 11/21/16 10:05> Date of Encounter: 11/21/16 Time of Encounter: 09:30 - Assessment and plan (1) GATO (acute kidney injury) Current Visit: Yes Status: Acute Assessment and plan: Suspected ATN as cause of renal failure. -Patient has chronic kidney disease. Patient's creatinine this morning was 3.5. Baseline creatinine is 2.8. -Nephrology has been counseled. -F/u renal US -Monitor renal function and urine output. -Avoid nephrotoxic agents and hypotension. (2) Anemia Current Visit: Yes Status: Acute Assessment and plan: Patient was given 2 units of packed red blood cells yesterday. Patient's hemoglobin is chronically low, likely due to his underlying chronic kidney disease. -Patient's hemoglobin this morning was 9.1. -Goal hemoglobin is 10-11. -Transfuse per parameters. Qualifiers: Anemia type: unspecified type Qualified Code(s): D64.9 - Anemia, unspecified (3) CAD (coronary artery disease) Current Visit: Yes Status: Chronic Assessment and plan: Cardiology will be consulted. No further workup at the moment due to patient's anemia and acute kidney injury. Qualifiers: Coronary Disease-Associated Artery/Lesion type: bypass graft [place] vs. transplanted heart: [place] heart Associated angina: without angina Qualified Code(s): I25.810 - Atherosclerosis of coronary artery bypass graft(s) without angina pectoris (4) Chronic atrial fibrillation Current Visit: Yes Status: Chronic Assessment and plan: Patient's rate is currently well controlled. -She will be continued on rate control medications. -Possible ablation in out patient setting per cardiology -Continue Coumadin. (5) Slurred speech Current Visit: Yes Status: Acute Assessment and plan: Patient had a suspected TIA. -Patient is currently stable at baseline and is asymptomatic. -Patient shows no focal deficits. -Patient has no strength deficits in his upper or lower extremities. -He denies any weakness. -He is alert and oriented 3. - Subjective Interval history: Patient was seen and examined at bedside this morning. Patient denies having any weakness, speech problems, confusion, or balance issues this morning. Patient is alert and oriented 3. He denies having any pain. He states that he remembers the initial event. He felt weak and was unable to get out of bed. This morning, he has no trouble getting out of bed. He has no complaints at this time. - Constitutional Vitals: Temp Pulse Resp BP Pulse Ox 98.3 F 73 16 120/66 97 11/21/16 07:07 11/21/16 07:07 11/21/16 07:07 11/21/16 07:07 11/21/16 07:07 General appearance: Present: cooperative, A&O X 3, pleasant, no acute distress, answers questions appropriately - Head Head exam: Present: atraumatic, normocephalic - ENT ENT exam: Present: mucous membranes moist - Respiratory Respiratory exam: Present: CTAB. Absent: accessory muscle use, rales, rhonchi, wheezes - Cardiovascular Cardiovascular exam: Present: RRR, +S1, +S2. Absent: diastolic murmur, gallop, rubs, systolic murmur - Expanded Lower Extremities Exam Lower Leg exam: Present: swelling (Patient has bilateral swelling in his lower extremities.) - Neurological Exam Neurological exam: Present: oriented X3, strengths equal and symetr throughout. Absent: abnormal gait, motor sensory deficit Internal Medicine: Result - Labs CBC & Chem 7: 11/21/16 04:01 11/21/16 04:01 Labs: Short CBC 11/21/16 Range/Units 04:01 WBC 3.6 L (4.3-11.1) K/mcL Hgb 9.1 L D (12.9-16.9) g/dL Hct 28.6 L (37.5-50.1) % Plt Count 130 L (140-400) K/mcL Neutrophils # 2.6 (1.6-8.9) K/mcL BMP 11/21/16 04:01 Sodium 141 Potassium 4.1 Chloride 118 H Carbon Dioxide 18 L BUN 70 H Creatinine 3.50 H Glucose 121 H Calcium 7.4 L Urine 11/20/16 Range/Units 11:00 Urine Color Yellow (Yellow) Urine Clarity Clear (Clear) Urine pH 6.0 (5.0-8.0) pH Units Ur Specific [place] 1.016 (1.010-1.025) Urine Protein Trace (Neg-Trace) mg/dL Urine Glucose (UA) Normal (Normal) mg/dL - ABG Interpretation ABG results: PT/INR, D-dimer PT 27.6 Seconds (9.4-12.1) H 11/20/16 04:23 - Impressions Impressions Retroperitoneum Ultrasound 11/20/16 13:00 IMPRESSION: 1. No acute sonographic abnormality of the kidneys. 2. Unremarkable sonographic appearance of the urinary bladder without evidence of a significant postvoid residual. 3. Prostatomegaly. D/ / Kwabena Stephen MD / Kwabena Stephen MD Interpreting Provider: Kwabena Stephen MD Consult Discharge Plan - Plan Referrals: Thom Donnelly MD [Primary Care Provider] - (patient will follow up with [facility]) <Shade Garcia - Last Filed: 11/21/16 15:14> Date of Encounter: 11/21/16 - Constitutional Vitals: Temp Pulse Resp BP Pulse Ox 98.1 F 77 16 134/70 97 11/21/16 11:04 11/21/16 11:04 11/21/16 11:04 11/21/16 11:04 11/21/16 11:04 Internal Medicine: Result - Labs CBC & Chem 7: 11/21/16 04:01 11/21/16 04:01 Labs: Short CBC 11/21/16 Range/Units 04:01 WBC 3.6 L (4.3-11.1) K/mcL Hgb 9.1 L D (12.9-16.9) g/dL Hct 28.6 L (37.5-50.1) % Plt Count 130 L (140-400) K/mcL Neutrophils # 2.6 (1.6-8.9) K/mcL BMP 11/21/16 04:01 Sodium 141 Potassium 4.1 Chloride 118 H Carbon Dioxide 18 L BUN 70 H Creatinine 3.50 H Glucose 121 H Calcium 7.4 L - ABG Interpretation ABG results: PT/INR, D-dimer PT 27.6 Seconds (9.4-12.1) H 11/20/16 04:23 - Attending Attestation Transfuse 1 more unit of blood. Recheck later today. I examined this patient and my medical decision-making was reviewed with the Resident Physician. I agree with the documented findings, disposition and treatment plan as described except to the extent set forth below.
[2016-11-21] MEDS: Budesonide/Formoterol 160/4.5 MDI IH SCH ×2 (10:52→19:54)
[2016-11-21] MEDS ORDERED: 0.9 % Sodium Chloride 250 ML ONE (15:42)
[2016-11-21] MEDS ORDERED: *HR* Warfarin 4 MG TABLET PO ONE (18:00)
[2016-11-21] MEDS ORDERED: Warfarin perPT PO PRN (18:00)
[2016-11-21] MEDS: Latanoprost 2.5 ML BOTTLE BOTH EYES SCH (22:55)
[2016-11-22 00:29] LABS: Hematocrit 29.1 % (37.5-50.1)
[2016-11-22 00:49] LABS: Prothrombin Time 21.8 Seconds (9.4-12.1)
[2016-11-22 04:58] LABS: Basophils % 0.2 %; Eosinophils # 0.2 K/mcL (0.0-0.6); Eosinophils % 3.3 %; Hematocrit 28.9 % (37.5-50.1); Hemoglobin 9.1 g/dL (12.9-16.9); Immature Granulocytes % 0.2 % (0-4); Lymphocytes # 0.6 K/mcL (0.6-4.6); Lymphocytes % 12.1 %; Mean Corpuscular HGB Conc 31.5 g/dL (31.6-35.5); Mean Corpuscular Hemoglobin 30.4 pg (28.0-33.3); Mean Corpuscular Volume 96.7 fL (83.0-100.0); Mean Platelet Volume 10.4 fL (9.4-12.4); Monocytes # 0.5 K/mcL (0.0-1.3); Monocytes % 10.1 %; Neutrophils # 3.6 K/mcL (1.6-8.9); Platelet Count 120 K/mcL (140-400); Red Blood Count 2.99 M/mcL (4.19-5.50); Red Cell Distribution Width 15.5 % (11.5-14.5); Segmented Neutrophils % 74.1 %
[2016-11-22 05:09] LABS: INR 2.1; Prothrombin Time 22.6 Seconds (9.4-12.1)
[2016-11-22 05:11] LABS: Calcium 7.5 mg/dL (8.6-10.8); Potassium 4.1 mEq/L (3.5-4.5)
[2016-11-22] MEDS: Metoprolol XL (24 HR) Succ 25 MG TAB.ER.24H PO SCH (08:15)
[2016-11-22] MEDS: Cholecalciferol (D-3) 1,000 UNIT TABLET PO SCH (08:19)
--- NOTE | 2016-11-22 09:18 | Nephrology Progress Note ---
Date of Encounter: 11/22/16 Time of Encounter: 09:18 - Assessment and Plan (1) Acute kidney injury superimposed on CKD Current Visit: Yes Status: Acute Kidney function improving back to baseline UOP 1150/24 hours hgb sable Plan: Patient's kidney function is improving with increased UOP continue to monitor renal function hgb stable after 2PBRC trasnfused Avoid nephrotoxins: NSAIDs, contrast Continue renal protective/ conservative strategy. (2) Slurred speech Current Visit: Yes Status: Resolved (3) Hypernatremia Current Visit: Yes Status: Resolved sodium is 142 and stable. (4) Anemia Current Visit: Yes Status: Acute hgb stable after 2 PBRC transfused. Qualifiers: Anemia type: unspecified type Qualified Code(s): D64.9 - Anemia, unspecified (5) CKD (chronic kidney disease), stage IV Current Visit: Yes Status: Chronic may be at new baseline with egfr 17. Subjective Principal diagnosis: GATO Interval history: NO problems overnight. Denies N/V/D. Objective - Vital Signs Vital signs: Vital Signs Temp Pulse Resp BP Pulse Ox 11/22/16 07:52 98.2 F 73 16 124/79 98 11/22/16 03:56 98.3 F 73 16 115/64 99 11/21/16 23:30 98.9 F 77 16 123/64 100 11/21/16 20:57 97.9 F 81 16 132/73 11/21/16 19:54 16 99 11/21/16 16:09 98.2 F 75 16 131/71 100 11/21/16 11:04 98.1 F 77 16 134/70 97 11/21/16 10:55 16 90 Intake and Output 11/21/16 11/22/16 11/22/16 23:59 07:59 15:59 Intake Total 350 / 350 Output Total 350 / 350 Balance 0 / 0 Intake: Blood Product 350 / 350 Rbcs Leuko Poor As-1 350 / 350 Unit [id number] Output: Urine 350 / 350 Other: Stool Size Large Moderate Stool Consistency loose loose liquid Stool Characteristics Foamy Pasty Stool Color Robert Christ Colored # Bowel Movements 1 Weight 65.8 kg Blood Glucose* 115 102 Patient Weight 11/22/16 23:59 Weight 65.8 kg - General Appearance General appearance: Present: appears started age, frail EENT: Present: mucous membranes moist Neck: Present: no JVD Respiratory: Present: clear Cardiology: Present: regular rate, normal S1, normal S2 Gastrointestinal: Present: normoactive bowel sounds, no tenderness Integumentary: Present: no rash, warm and dry Neurologic: Present: no focal deficit, no asterixis, alert and oriented x3 Musculoskeletal: Present: no deformities, no erythema, no cyanosis, no clubbing Psychiatric: Present: mood/affect appropriate, cooperative - Lab 11/22/16 04:45 11/22/16 04:45 Most recent lab results Calcium 7.5 mg/dL (8.6-10.8) L 11/22/16 04:45 Phosphorus 4.2 mg/dL (2.3-4.7) 11/20/16 04:23 Magnesium 1.2 mg/dL (1.6-2.6) L 11/20/16 04:23 Urine Creatinine 55 mg/dL 11/20/16 11:00 Urine Sodium 79.0 mEq/L 11/20/16 11:00 Urine Total Protein 9 mg/dL (1-14) 11/20/16 11:00 Consult Discharge Plan - Plan Referrals: Thom Donnelly MD [Primary Care Provider] - (patient will follow up with [facility])
--- NOTE | 2016-11-22 10:48 | Discharge Summary ---
<Curry Styles - Last Filed: 11/22/16 10:45> Date of Encounter: 11/22/16 Time of Encounter: 10:30 - Discharge Diagnosis (1) GATO (acute kidney injury) Priority: Primary Status: Acute Comments: Suspected ATN as cause of renal failure. -Patient has chronic kidney disease. Patient's creatinine this morning was 3.41. -Monitor renal function and urine output. -Avoid nephrotoxic agents and hypotension. (2) Anemia Priority: Secondary Status: Acute Comments: Patient given 2 units of packed red blood cells before today. Patient's hemoglobin is chronically low, likely due to his underlying chronic kidney disease. -Hemoglobin this morning is 9.1 -Goal hemoglobin is 10-11. -Picc line inserted last night. One unit of blood given today. -Transfuse per parameters. Qualifiers: Anemia type: unspecified type Qualified Code(s): D64.9 - Anemia, unspecified (3) CAD (coronary artery disease) Priority: Secondary Status: Chronic Comments: Patient's condition is stable. BP this morning was 124/79. Qualifiers: Coronary Disease-Associated Artery/Lesion type: bypass graft [place] vs. transplanted heart: [place] heart Associated angina: without angina Qualified Code(s): I25.810 - Atherosclerosis of coronary artery bypass graft(s) without angina pectoris (4) Chronic atrial fibrillation Priority: Secondary Status: Chronic Comments: Patient's rate is currently well controlled. -Will be continued on rate control medications. -Possible ablation in out patient setting per cardiology -Patient on Coumadin. (5) Slurred speech Priority: Secondary Status: Acute - Discharge Medications Home Medications: Magnesium Oxide [Mgo] 400 mg PO BID 03/05/15 [History] Tamsulosin [Flomax] 0.4 mg PO DAILY 03/05/15 [History] Budesonide/Formoterol 160/4.5 [Symbicort 160/4.5] 2 puff IH BIDR 07/27/15 [ History] Calcitriol 0.25 mcg PO DAILY 07/27/15 [History] Sodium Bicarbonate 650 mg PO BID 07/27/15 [History] Vit A/C/E AC/Znox/Cupric Oxide [Eye Vitamin-Minerals Tablet] 1 tab PO BID [History] Carboxymethylcellulose Sodium [Refresh Tears] 1 drop BOTH EYES QID 12/27/15 [ History] Fluticasone Propionate Nasal [Flonase] 1 spray NS DAILY 12/27/15 [History] Omeprazole [PriLOSEC] 40 mg PO DAILY PRN #30 capsule. 12/31/15 [Rx] Furosemide [Lasix] 20 mg PO DAILY 04/20/16 [History] Calcium Carbonate/Vitamin D3 [Calcium 600 + Vit D Tablet] 1 tab PO BID 10/28/16 [History] Ergocalciferol (VITAMIN D2) [Drisdol (50,000 Unit)] 50,000 unit PO QWEEK [History] Ondansetron ODT [Zofran ODT] 4 mg SL Q8HR 10/28/16 [History] Quetiapine Fumarate [Seroquel] 25 mg PO HS 10/28/16 [History] Cyanocobalamin (B-12) [Vitamin B12] 1,000 mcg PO DAILY 365 Days 10/31/16 [Rx] Benzonatate [Tessalon] 100 mg PO TID PRN 11/18/16 [History] Cetirizine HCl [All Day Allergy] 10 mg PO DAILY 11/18/16 [History] Ferrous Sulfate [Iron] 325 mg PO DAILY 11/18/16 [History] Lactobacillus [Culturelle] 1 cap PO BID 11/18/16 [History] Latanoprost [Xalatan] 1 drop BOTH EYES DAILY 11/18/16 [History] Warfarin [Coumadin] 4 mg PO SUMOWETHFR@1800 11/20/16 [History] Warfarin [Coumadin] 6 mg PO TUSA@1800 11/20/16 [History] Allergies/Adverse Reactions: Allergies cephalexin [From Keflex] Allergy (Verified 12/26/15 12:36) Vomiting promethazine [From Phenergan] Adverse Reaction (Verified 10/28/16 07:29) See Comments Body jerking Procedures/tests Complete & Pending: Procedures Performed prior 72 hours Category Date Time Status US retroperitoneal comp [US] Routine Exams 11/20/16 13:00 Completed EV echocardiogram Routine Y 11/20/16 10:53 Completed Date of admission: 11/19/16 08:00 Primary care physician: Thom Donnelly MD Consults: 11/18/16 16:48 Consult to Kiln [facility]er [CONS] Routine Reason for SW Consult: care home return 11/18/16 16:50 Consult to Nephrology [CONS] Routine Consulting Provider: Kidney Anisa/LD/ALICIA/ROSHNI Reason for Consult: Worsening CKD, hypernatremia Call Completed: Yes 11/19/16 14:03 PT [Consult to Physical Therapy] [CONS] Routine Comment: Evaluate, develop and implement POC Reason for Consult: DC dispo 11/21/16 17:39 Consult to PICC team [Consult to Invasive Line Access Team] [CONS] Routine Reason for Consult: establish IV access Line Type: EPIV Call Completed: No Discharging clinician: Curry Styles Anticipated date of discharge: 11/22/16 - Patient Status Disposition: Transfer SNF Condition: Good Overall status at discharge: patient is progressing back to baseline - Discharge Instructions Follow Up With: Thom Donnelly MD [Primary Care Provider] - (patient will follow up with [facility]) Additional Instructions: Follow up with GI in the next 2-3 weeks. - Diet and Activity Activity: increase activity as tolerated Diet: advance to your usual diet Hospital course: Mr. Michelle is a 81 year old male with a history of CAD, CKD, and COPD who was sent from emergency room at [facility] for evaluation of stroke-like symptoms. snf staff noticed that he had increased slurring of speech along with increased right-sided weakness of his hands and legs. Patient had difficulty getting out of bed. On admission, patient complained of generalized weakness, fatigue and malaise along with intermittent tightness in his leg and shoulder and neck muscles while participating in physical therapy. He denied headache, blurred vision, and paresthesias. The patient's symptoms had resolved by the time he was admitted, but he was found to have GATO/CKD and hypernatremia. It was noted the patient's creatinine had been worsening over the last 6 months. Nephrology was consulted, patient was given fluids and nephrotoxic agents were avoided. During his stay in hospital, patient did not having any weakness. When patient was examined, he did not have any focal neurologic deficits, nor did he have any weakness in his extremities. He denied having any slurred speech or confusion. Patient's hemoglobin was low at 6.5, possibly a result of chronic disease. Patient was initially given 2 units of blood. A PICC line was then inserted, due to difficulty with access and patient was given a third unit of blood on the day of discharge. On date of discharge before transfusion , since hemoglobin is 9.1. Patient's condition is stable at discharge. His creatinine has slightly improved. Creatinine went from 3.57-3.41. He denies having any pain, weakness, headache, nausea, vomiting, fever, or chills. Patient will be discharged to nursing facility. - Time Spent with Patient Total time spent providing and/or coordinating discharge services: Greater than 30 minutes (42 minutes) - Constitutional Vitals: Temp Pulse Resp BP Pulse Ox 98.2 F 73 16 124/79 98 11/22/16 07:52 11/22/16 07:52 11/22/16 07:52 11/22/16 07:52 11/22/16 07:52 General appearance: Present: cooperative, A&O X 3, pleasant, no acute distress, answers questions appropriately - Head Head exam: Present: atraumatic, normocephalic - Neck Neck exam general surgery: Present: supple, trachea midline. Absent: lymphadenopathy - Respiratory Respiratory exam: Present: CTAB. Absent: accessory muscle use, rales, rhonchi, wheezes - Cardiovascular Cardiovascular exam: Present: RRR, +S1, +S2. Absent: diastolic murmur, gallop, rubs, systolic murmur - GI/Abdominal GI/Abdominal exam: Present: normal bowel sounds, soft - Neurological Exam Neurological exam: Present: no focal deficits - Skin Skin exam: Present: dry, intact <Shade Garcia H - Last Filed: 11/22/16 11:13> Date of Encounter: 11/22/16 Procedures/tests Complete & Pending: Procedures Performed prior 72 hours Category Date Time Status US retroperitoneal comp [US] Routine Exams 11/20/16 13:00 Completed EV echocardiogram Routine Y 11/20/16 10:53 Completed Date of admission: 11/19/16 08:00 Primary care physician: Thom Donnelly MD Consults: 11/18/16 16:48 Consult to Kiln Burner [CONS] Routine Reason for SW Consult: care home return 11/18/16 16:50 Consult to Nephrology [CONS] Routine Consulting Provider: Kidney [place]/LD/ALICIA/ROSHNI Reason for Consult: Worsening CKD, hypernatremia Call Completed: Yes 11/19/16 14:03 PT [Consult to Physical Therapy] [CONS] Routine Comment: Evaluate, develop and implement POC Reason for Consult: DC dispo 11/21/16 17:39 Consult to PICC team [Consult to Invasive Line Access Team] [CONS] Routine Reason for Consult: establish IV access Line Type: EPIV Call Completed: No Hospital course: Mr. Michelle is a 81 year old male - Time Spent with Patient Total time spent providing and/or coordinating discharge services: - Constitutional Vitals: Temp Pulse Resp BP Pulse Ox 98.2 F 73 16 124/79 98 11/22/16 07:52 11/22/16 07:52 11/22/16 07:52 11/22/16 07:52 11/22/16 07:52 - Attending Attestation Hemoccult was negative, the patient's anemia is likely related to chronic kidney disease. We will administer 1 unit of blood before discharging him. Follow-up with GI within the next 2-3 weeks. May hold Coumadin if signs of bleeding. I examined this patient and my medical decision-making was reviewed with the Resident Physician. I agree with the documented findings, disposition and treatment plan as described except to the extent set forth below.
[2016-11-22] MEDS: Budesonide/Formoterol 160/4.5 MDI IH SCH (11:03)
--- NOTE | 2016-11-22 11:16 | Physician Discharge Referral ---
<Curry Styles - Last Filed: 11/22/16 11:14> [facility] Referral Info Provider in Charge after Transfer: PCP - Diagnosis (1) GATO (acute kidney injury) Priority: Primary Status: Acute (2) Anemia Priority: Secondary Status: Acute (3) CAD (coronary artery disease) Priority: Secondary Status: Chronic (4) Chronic atrial fibrillation Priority: Secondary Status: Chronic (5) Slurred speech Priority: Secondary Status: Acute - Transfer Medications Home Medications: Magnesium Oxide [Mgo] 400 mg PO BID 03/05/15 [History] Tamsulosin [Flomax] 0.4 mg PO DAILY 03/05/15 [History] Budesonide/Formoterol 160/4.5 [Symbicort 160/4.5] 2 puff IH BIDR 07/27/15 [ History] Calcitriol 0.25 mcg PO DAILY 07/27/15 [History] Sodium Bicarbonate 650 mg PO BID 07/27/15 [History] Vit A/C/E AC/Znox/Cupric Oxide [Eye Vitamin-Minerals Tablet] 1 tab PO BID [History] Carboxymethylcellulose Sodium [Refresh Tears] 1 drop BOTH EYES QID 12/27/15 [ History] Fluticasone Propionate Nasal [Flonase] 1 spray NS DAILY 12/27/15 [History] Omeprazole [PriLOSEC] 40 mg PO DAILY PRN #30 capsule. 12/31/15 [Rx] Furosemide [Lasix] 20 mg PO DAILY 04/20/16 [History] Calcium Carbonate/Vitamin D3 [Calcium 600 + Vit D Tablet] 1 tab PO BID 10/28/16 [History] Ergocalciferol (VITAMIN D2) [Drisdol (50,000 Unit)] 50,000 unit PO QWEEK [History] Ondansetron ODT [Zofran ODT] 4 mg SL Q8HR 10/28/16 [History] Quetiapine Fumarate [Seroquel] 25 mg PO HS 10/28/16 [History] Cyanocobalamin (B-12) [Vitamin B12] 1,000 mcg PO DAILY 365 Days 10/31/16 [Rx] Benzonatate [Tessalon] 100 mg PO TID PRN 11/18/16 [History] Cetirizine HCl [All Day Allergy] 10 mg PO DAILY 11/18/16 [History] Ferrous Sulfate [Iron] 325 mg PO DAILY 11/18/16 [History] Lactobacillus [Culturelle] 1 cap PO BID 11/18/16 [History] Latanoprost [Xalatan] 1 drop BOTH EYES DAILY 11/18/16 [History] Warfarin [Coumadin] 4 mg PO SUMOWETHFR@1800 11/20/16 [History] Warfarin [Coumadin] 6 mg PO TUSA@1800 11/20/16 [History] Allergies/Adverse Reactions: Allergies cephalexin [From Keflex] Allergy (Verified 12/26/15 12:36) Vomiting promethazine [From Phenergan] Adverse Reaction (Verified 10/28/16 07:29) See Comments Body jerking - Respiratory Orders Smoking Cessation: Smoking cessation has been advised. For more information, call the [place] Tobacco Quit Line at 4-141-HALPNOW. - Rehabiliation Orders Rehab Potential: Fair - Diet Orders Regular CERTIFICATION: I certify that the transfer of the above named patient to an Extended Care Facility is necessary for the continuing treatment of the diagnosis listed. The above information is true and accurate reflection of patient's current condition. Confidential - Redisclosure prohibited without a patient's written consent. <Shade Garcia H - Last Filed: 11/22/16 11:18> [facility] Referral Info Provider in Charge after Transfer: PCP Institutional Level of Care: Skilled - Respiratory Orders Smoking Cessation: Smoking cessation has been advised. For more information, call the [place] Tobacco Quit Line at 5-448-RHIJNOW. CERTIFICATION: I certify that the transfer of the above named patient to an Extended Care Facility is necessary for the continuing treatment of the diagnosis listed. The above information is true and accurate reflection of patient's current condition. Confidential - Redisclosure prohibited without a patient's written consent. I examined this patient and my medical decision-making was reviewed with the Resident Physician. I agree with the documented findings, disposition and treatment plan as described except to the extent set forth below.
[2016-11-22] MEDS ORDERED: 0.9 % Sodium Chloride 250 ML ONE (11:41)
[2016-11-22 15:28] VITALS: BP 124/76
[2016-11-22] MEDS ORDERED: *HR* Warfarin 4 MG TABLET PO SCH (18:00)
[2016-11-25] MEDS ORDERED: *HR* Warfarin 3 MG TABLET PO SCH (18:00)
== END 2016-11-22 16:00 | DRG 682 ==
LOC: 2ANU → SUATTDRO 15:23
PROVIDERS: ADMIT Internal Medicine; ATTEND Internal Medicine

== ENCOUNTER 2017-03-23 15:04 | Inpatient (IN) ==
[2017-03-23] MEDS ORDERED: Warfarin perPT PO PRN (19:31)
[2017-03-23] MEDS ORDERED: Naloxone 0.4 MG/ML INJ IVP PRN (19:34)
--- NOTE | 2017-03-23 19:47 | Internal Med History&Physical ---
<Frandy Askew - Last Filed: 03/23/17 22:28> Date of Encounter: 03/23/17 Time of Encounter: 19:43 Assessment and Plan (1) UTI (urinary tract infection) Current visit: Yes Status: Acute Trace leuks, trace blood, denies dysuria, urinary frequency, or urgency. Patient is generally weak with a decline of functional capacity, Has had increase in falls which I suspect are related to UTI. Ceftriaxone 1 g daily CBC, CMP in the morning Continuous telemetry, continuous O2 monitoring Qualifiers: Urinary tract infection type: acute cystitis Hematuria presence: with hematuria Qualified Code(s): N30.01 - Acute cystitis with hematuria (2) Fall Current visit: Yes Status: Acute Generalized weakness with history of multiple falls. Was recently in [facility] for rehabilitation. Continues to have functional decline. Also, patient has a UTI which could also be contributing to falls events. PT/OT consult adult services librarian consult for placement Continuous telemetry Qualifiers: Qualified Code(s): W19.XXXA - Unspecified fall, initial encounter (3) General weakness Current visit: Yes Status: Acute Generalized weakness. Was recently in [facility] for rehabilitation. Has experienced multiple falls recently with a decrease in functional capacity. See plan above (4) CKD (chronic kidney disease), stage IV Current visit: Yes Status: Chronic Chronic kidney disease stage IV, BUN/creatinine at patient's baseline. Recheck creatinine in the morning Nephrology consult for now; consider in the morning if renal function has worsened (5) Elevated troponin Current visit: Yes Status: Acute Chronically elevated troponin likely multifactorial, history of chronic kidney disease. Recent echocardiogram reveals wall motion abnormalities, patient has CHF. We will hold off on heparin for now due to history of multiple falls, increased risk for bleeding, patient is also on Coumadin. Patient remains hemodynamically stable and is denying any chest pain Continue to monitor troponin Continuous telemetry Consult cardio for further evaluation and recommendations-days team to call (6) Chronic atrial fibrillation Current visit: Yes Status: Chronic A. fib with RVR rate of 103 initially on arrival. Now rate controlled. Continue Coumadin with pharmacy to dose Currently not on any medications for rate control (7) Bilateral lower extremity edema Current visit: Yes Status: Chronic Increase in BLE swelling, history of congestive heart failure. Lasix 40 mg IV push twice a day (8) COPD (chronic obstructive pulmonary disease) Current visit: Yes Status: Acute Stable, resume Symbicort Qualifiers: COPD type: unspecified COPD Qualified Code(s): J44.9 - Chronic obstructive pulmonary disease, unspecified Internal Medicine - H&P: HPI Chief complaint: Weakness, multiple falls, elevated troponin Admitted From: Home Plans for Post Hospital Care: Home History of present illness: Mr. Michelle is a 82 year old male with a PMH of A. fib and is on Coumadin, COPD, CAD, DM, GERD, HTN, IA, CHF and CKD being followed by [place] [facility]. Presents today due to increasing weakness and a fall last night without any head trauma. Patient is very hard of hearing, family at bedside to assist with patient today. reports that the patient fell last night was unable to get up by himself. She reports that this happened recently on multiple occasions, according and increasing functional decline. His recently admitted to [facility] rehabilitation. reports it is becoming more difficult for her to care for him and believes he may need to go back to [facility] for additional rehabilitation. She reports increasing difficulty with ambulation and decreasing strength. Denies any neurological deficits, fevers, chest pain, abdominal pain, syncope, numbness and tingling, dizziness. Past Med Surg Social Fam HX - Past Medical History Medical history: atrial fibrillation, CHF, COPD, coronary artery disease, diabetes, GERD, hypertension, myocardial infarction, renal disease, other Psychiatric history: no psych history - Past Surgical History Surgical History: appendectomy, cholecystectomy, coronary bypass (CABG), herniorrhaphy, pacemaker - Social History Smoking Status: Former smoker Smokeless Tobacco Status: No Alcohol use: none Drug use: none - Family History Father Living Status: Hx Family Cardiac Disorders: No Hx Family Respiratory Disorders: Yes (COPD) Hx Family Cancer: No Hx Family GI Disorders: No Hx Family Endocrine Disorder: No Hx Family Neuromuscular Disorders: No Hx Family Neurologic Disorders: No Hx Family HEENT Disorders: No Hx Family Autoimmune Disorders: No Daughter Living Status: Still Living Hx Family Cardiac Disorders: Yes (hypertension) Hx Family GI Disorders: Yes (IBS, Celiac disease, gallbladder) Mother Adopted: No Living Status: Hx Family Cardiac Disorders: Yes Hx Family Endocrine Disorder: Yes (Diabetes) Hx Family Neurologic Disorders: Yes (Alzheimer) Internal Medicine - H&P: Meds Magnesium Oxide [Mgo] 400 mg PO BID 1030/15 [History] Tamsulosin [Flomax] 0.4 mg PO DAILY 03/05/15 [History] Budesonide/Formoterol 160/4.5 [Symbicort 160/4.5] 2 puff IH BIDR 07/27/15 [ History] Sodium Bicarbonate 1,300 mg PO BID 07/27/15 [History] Carboxymethylcellulose Sodium [Refresh Tears] 1 drop BOTH EYES QID 12/27/15 [ History] Fluticasone Propionate Nasal [Flonase] 1 spray NS DAILY 12/27/15 [History] Furosemide [Lasix] 20 mg PO DAILY PRN 04/20/16 [History] Ondansetron ODT [Zofran ODT] 4 mg SL Q8HR PRN 10/28/16 [History] Ferrous Sulfate [Iron] 325 mg PO DAILY 11/18/16 [History] Latanoprost [Xalatan] 1 drop LEFT EYE HS 11/18/16 [History] Warfarin [Coumadin] 4 mg PO SUMOWETHFR 11/20/16 [History] Ammonium Lactate [Jenny-Hydrolac] 1 appl TP BID 03/23/17 [History] Aspirin Enteric Coated [Aspirin EC] 81 mg PO DAILY 03/23/17 [History] Calcitriol [Rocaltrol] 0.25 mcg PO DAILY 03/23/17 [History] Calcium Carbonate [Calcium] 600 mg PO BID 03/23/17 [History] Cholecalciferol (D-3) [Vitamin D] 2,000 unit PO DAILY 03/23/17 [History] Nut.tx.impaired Digest Fxn [Ensure Clear] 1 bottle PO DAILY 03/23/17 [History] Omeprazole [PriLOSEC] 20 mg PO BID 03/23/17 [History] Quetiapine Fumarate [SEROquel] 25 mg PO HS 03/23/17 [History] Vit C/E/Zn/Coppr/Lutein/Zeaxan [Preservision Areds 2 Softgel] 1 cap PO BID 03/23 [History] Warfarin [Coumadin] 2 mg PO TUSA 03/23/17 [History] 3 Allergy/AdvReac Type Severity Reaction Status Date / Time cephalexin [From Keflex] Allergy Vomiting Verified 12/26/15 12:36 promethazine [From Phenergan] AdvReac See Verified 10/28/16 07:29 Comments All Systems PM: A 10-system review of systems was performed and is negative for pertinent findings except as documented above in the HPI. - Constitutional Constitutional: fatigue, falls, malaise, weakness, no chills, no fever(s) - Cardiovascular Cardiovascular ROS IM: dyspnea (Chronic), dyspnea on exertion (Chronic), no chest pain, no claudication, no edema, no irregular heart rhythm, no lightheadedness, no orthopnea, no palpitations, no paroxysmal nocturnal dyspnea , no syncope - Respiratory Respiratory: dyspnea (Chronic), dyspnea on exertion (Chronic), no cough, no wheezing, no pain on inspiration, no chest congestion, no excessive phlegm production - Gastrointestinal Gastrointestinal: no abdominal pain, no diarrhea, no hematemesis, no hematochezia, no melena, no nausea, no vomiting - Integumentary Integumentary IM: no rash, no unusual bruising - Neurological Neurological ROS: as per HPI, frequent falls, weakness, no abnormal movements, no abnormal speech, no confusion, no disequilibrium, no dizziness, no headache(s ), no numbness, no tingling - Constitutional Vitals: Temp Pulse Resp BP Pulse Ox 98.1 F 79 16 121/60 99 03/23/17 17:55 03/23/17 17:55 03/23/17 17:55 03/23/17 17:55 03/23/17 17:55 General appearance: Present: cooperative, mild distress, A&O X 3, answers questions appropriately - Head Head exam: Present: atraumatic, normocephalic - Neck Neck exam general surgery: Present: supple, trachea midline. Absent: lymphadenopathy - Respiratory Respiratory exam: Present: CTAB. Absent: accessory muscle use, rales, rhonchi, wheezes - Cardiovascular Cardiovascular exam: Present: RRR, +S1, +S2. Absent: diastolic murmur, gallop, rubs, systolic murmur - GI/Abdominal GI/Abdominal exam: Present: normal bowel sounds, soft, no peritoneal signs. Absent: distended, tenderness - Extremities Exam Extremities exam: Present: pedal edema, warm, radial pulses palpable and symmetrical. Absent: calf tenderness, cyanotic, normal capillary refill Additional comments: Bilateral lower extremity edema - Neurological Exam Neurological exam: Present: oriented X3, facial droop (Left-sided, beginning last week after dental procedure). Absent: normal gait (PALMER) - Expanded Neurological Exam Neurological exam expanded: Absent: expressive aphasia, receptive aphasia Patient oriented to: Present: person, place, time Speech: Present: fluid speech Cranial Nerves: EOM's intact PM: Normal, nystagmus PM: Normal, tongue deviation PM: Normal Cerebellar function: finger to nose: Normal, heel to flores: Normal, Romberg: Normal Upper motor neuron: Babinski sign: Normal, Javon neglect: Normal, pronator drift : Normal, sensory extinction: Normal Neuro motor strength exam: LUE: 4, RUE: 4, LLE: 4, RLE: 4 Coma Scale Eye Opening: Spontaneous Coma Scale Motor Response: Obeys Commands Coma Scale Verbal Response: Oriented Coma Scale Total: 15 Internal Med - H&P Results - EKG Data -: EKG Interpreted by Myself - EKG Data EKG comments: 03/23/17 19:54 Paced rhythm - Diagnostic Studies Chest x-ray Status: image reviewed by me Additional comments: No acute pulmonary process - VTE Reasons for not Prescribing Prophylaxis: Not indicated-Anticoagulated or INR therapeutic <Prasanth Castellanos T - Last Filed: 03/24/17 00:51> Date of Encounter: 03/24/17 Internal Medicine - H&P: HPI History of present illness: Mr. Michelle is a 82 year old male All Systems PM: A 10-system review of systems was performed and is negative for pertinent findings except as documented above in the HPI. - Constitutional Vitals: Temp Pulse Resp BP Pulse Ox 97.6 F 72 16 113/67 98 03/23/17 20:27 03/23/17 20:27 03/23/17 22:47 03/23/17 20:27 03/23/17 22:47 Internal Med - H&P Results - Labs Labs: Cardiac Enzymes 03/23/17 Range/Units 20:22 Troponin I 0.16 H* (0-0.03) ng/mL - Attending Attestation Seen and examined on 03/23/17, daughter at bedside, plan of care is discussed with daughter and patient, as well as ROLF Wise Recurrent falls, fluid overload, elevated troponin, CKD with renal function is at baseline, UTI Continue home meds, cardio eval, follow cultures, fall precautions, PTOT eval Details as documented in ROLF Askew documentation, which I agree with
[2017-03-23] MEDS ORDERED: *HR* Warfarin 4 MG TABLET PO ONE (20:55)
[2017-03-23] MEDS: Magnesium Oxide 400 MG TABLET PO SCH (21:21)
[2017-03-23] MEDS: Ammonium Lactate 30 APPL/225 GM BOTTLE TP SCH (21:21)
[2017-03-23 21:25] LABS: INR 2.2; Prothrombin Time 23.7 Seconds (9.4-12.1)
[2017-03-23] MEDS ORDERED: CefTRIAXone 1,000 MG VIAL IM ONE (21:41)
[2017-03-23] MEDS: Latanoprost 2.5 ML BOTTLE LEFT EYE SCH (22:39)
[2017-03-23] MEDS: Furosemide 40 MG TABLET PO SCH (22:39)
[2017-03-23] MEDS: Artificial Tears SOLN 15 ML BOTTLE BOTH EYES SCH (22:40)
[2017-03-23] MEDS ORDERED: *HR* Water for inj. (sterile) 10 ML VIAL IV ONE (22:45)
[2017-03-23] MEDS: Budesonide/Formoterol 160/4.5 MDI IH SCH (22:47)
[2017-03-24 01:02] LABS: Hematocrit 24.5 % (37.5-50.1); Hemoglobin 7.8 g/dL (12.9-16.9); Mean Corpuscular HGB Conc 31.8 g/dL (31.6-35.5); Mean Corpuscular Hemoglobin 32.8 pg (28.0-33.3); Mean Corpuscular Volume 102.9 fL (83.0-100.0); Mean Platelet Volume 9.9 fL (9.4-12.4); Platelet Count 108 K/mcL (140-400); Red Blood Count 2.38 M/mcL (4.19-5.50)
[2017-03-24 01:06] LABS: INR 2.1; Prothrombin Time 23.5 Seconds (9.4-12.1)
[2017-03-24 01:20] LABS: Potassium 3.7 mEq/L (3.5-4.5)
[2017-03-24] MEDS ORDERED: D5% in Water 1,000 ML IVC PRN (03:24)
[2017-03-24] MEDS ORDERED: *HR* Dextrose 50 % in Water (Syg) 50 ML SYRINGE IVP PRN (03:24)
[2017-03-24] MEDS ORDERED: Dextrose Gel 15 GM PO PRN ×2 (03:24)
[2017-03-24] MEDS: Budesonide/Formoterol 160/4.5 MDI IH SCH ×2 (07:45→21:47)
[2017-03-24] MEDS ORDERED: NUT TX IMPAIRED DIGEST FXN PO SCH (09:00)
[2017-03-24] MEDS: Furosemide 40 MG TABLET PO SCH (09:35)
[2017-03-24] MEDS: cefTRIAXone 1,000 MG in Water for inj. (sterile) 10 ML IVP SCH (09:36)
[2017-03-24] MEDS: Magnesium Oxide 400 MG TABLET PO SCH ×2 (09:36→21:44)
[2017-03-24] MEDS: Aspirin Enteric Coated 81 MG Tablet PO SCH (09:36)
[2017-03-24] MEDS: Cholecalciferol (D-3) 1,000 UNIT TABLET PO SCH (09:36)
[2017-03-24] MEDS: Insulin LISPRO 300 UNITS/3 ML VIAL SQ SCH ×4 (09:37→21:45)
[2017-03-24] MEDS: Fluticasone Propionate Nasal 50 MCG/SPRAY BOTTLE NS SCH (09:38)
[2017-03-24] MEDS: Artificial Tears SOLN 15 ML BOTTLE BOTH EYES SCH ×4 (09:38→21:43)
[2017-03-24] MEDS: Ammonium Lactate 30 APPL/225 GM BOTTLE TP SCH ×2 (09:39→21:46)
--- NOTE | 2017-03-24 10:11 | Cardiology Consult Note ---
<LashaDat R - Last Filed: 03/24/17 10:13> Date of Encounter: 03/24/17 Time of Encounter: 10:07 Assessment and Plan (1) Elevated troponin Current Visit: Yes Status: Acute Troponin 0.16, 0.15--flat and adynamic in setting of anemia HGB 7.8, CKD creatinine 3.32 and UTI. Suspect demand ischemia, nondiagnostic for ACS. Cardiac rehab not warranted. Pt denies chest pain. No ischemic EKG changes. Known mildly reduced EF without wall motion abnormalities on echo 11/2016. Recheck echo to re-evaluate. If no significant change on echo, no further cardiac evaluation will be warranted. (2) A-fib Current Visit: Yes Status: Acute Known A-Fib. Anticoagulated on Coumadin, INR 2.1. HGB 7.8--chronic anemia, but lower than recent baseline. Also, per H&P, reports more frequent falls. [id number] (CHF, Age, HTN, CAD, DM). High CVA risk, on Coumadin, but given anemia and recurrent falls, recommend ASA only for anticoagulation. Stop Coumadin. Qualifiers: Atrial fibrillation type: unspecified Qualified Code(s): I48.91 - Unspecified atrial fibrillation (3) CHF (congestive heart failure) Current Visit: Yes Status: Acute Known mildly reduced EF of 45-50%. Agree with IV Lasix 40mg BID. LE edema noted. Per pt, not worse from baseline. Recommend strict I/O, Na and fluid restriction, daily weights. Recheck echo. Qualifiers: Congestive heart failure type: systolic Congestive heart failure chronicity : chronic Qualified Code(s): I50.22 - Chronic systolic (congestive) heart failure (4) CAD (coronary artery disease) Current Visit: No Status: Chronic Hx of CABG in 2010. ASA, Statin, BB. Qualifiers: Coronary Disease-Associated Artery/Lesion type: [place] artery [place] vs. transplanted heart: [place] heart Associated angina: without angina Qualified Code(s): I25.10 - Atherosclerotic heart disease of [place] coronary artery without angina pectoris Discussion w patient/family: The assessment and plan as outlined above was discussed with the patient and/or family members who expressed understanding and agreement. All questions were answered. Thank you for involving us in the care of your patient. Please call with any questions. I will discuss all the above with Dr. Adams and make changes as necessary. History of Present Illness Consult date: 03/24/17 Requesting physician: Prasanth Castellanos Consult reason: Elevated troponin Chief complaint: fall History of present illness: Mr. Michelle is a 82 year old male with a PMH of A. fib on Coumadin, COPD, CAD s/p CABG in 2010, DM, GERD, HTN, systolic CHF, PPM and CKD that presented to ED due to increasing weakness and a fall last night without any head trauma. Patient is very hard of hearing. No family at bedside. Per hospitalist H&P, reported that the patient fell last night was unable to get up by himself. She reports that this happened recently on multiple occasions, increasing functional decline. His recently admitted to [facility] rehabilitation. reports it is becoming more difficult for her to care for him and believes he may need to go back to [facility] for additional rehabilitation. She reports increasing difficulty with ambulation and decreasing strength. Pt denies chest pain, denies any worsening dyspnea from baseline and denies any increase in LE edema from baseline. Pt found to have UTI. Troponins 0.16, 0.15. Creatinine 3.32, HGB 7.8. Cardiology consulted for further recommendations. Echo 11/2016 EF 45-50%, borderline low without wall motion abnormalities. Mild LVH. Past Med Surg Social Fam HX - Past Medical History Medical history: atrial fibrillation, CHF, COPD, coronary artery disease, diabetes, GERD, hypertension, myocardial infarction, renal disease, other Psychiatric history: no psych history - Past Surgical History Surgical History: appendectomy, cholecystectomy, coronary bypass (CABG), herniorrhaphy, pacemaker - Social History Smoking Status: Former smoker Smokeless Tobacco Status: No Alcohol use: none Drug use: none - Family History Father Living Status: Hx Family Cardiac Disorders: No Hx Family Respiratory Disorders: Yes (COPD) Hx Family Cancer: No Hx Family GI Disorders: No Hx Family Endocrine Disorder: No Hx Family Neuromuscular Disorders: No Hx Family Neurologic Disorders: No Hx Family HEENT Disorders: No Hx Family Autoimmune Disorders: No Daughter Living Status: Still Living Hx Family Cardiac Disorders: Yes (hypertension) Hx Family GI Disorders: Yes (IBS, Celiac disease, gallbladder) Mother Adopted: No Living Status: Hx Family Cardiac Disorders: Yes Hx Family Endocrine Disorder: Yes (Diabetes) Hx Family Neurologic Disorders: Yes (Alzheimer) Medications and Allergies Magnesium Oxide [Mgo] 400 mg PO BID 03/05/15 [History] Tamsulosin [Flomax] 0.4 mg PO DAILY 03/05/15 [History] Budesonide/Formoterol 160/4.5 [Symbicort 160/4.5] 2 puff IH BIDR 07/27/15 [ History] Sodium Bicarbonate 1,300 mg PO BID 07/27/15 [History] Carboxymethylcellulose Sodium [Refresh Tears] 1 drop BOTH EYES QID 12/27/15 [ History] Fluticasone Propionate Nasal [Flonase] 1 spray NS DAILY 12/27/15 [History] Furosemide [Lasix] 20 mg PO DAILY PRN 04/20/16 [History] Ondansetron ODT [Zofran ODT] 4 mg SL Q8HR PRN 10/28/16 [History] Ferrous Sulfate [Iron] 325 mg PO DAILY 11/18/16 [History] Latanoprost [Xalatan] 1 drop LEFT EYE HS 11/18/16 [History] Warfarin [Coumadin] 4 mg PO SUMOWETHFR 11/20/16 [History] Ammonium Lactate [Jenny-Hydrolac] 1 appl TP BID 03/23/17 [History] Aspirin Enteric Coated [Aspirin EC] 81 mg PO DAILY 03/23/17 [History] Calcitriol [Rocaltrol] 0.25 mcg PO DAILY 03/23/17 [History] Calcium Carbonate [Calcium] 600 mg PO BID 03/23/17 [History] Cholecalciferol (D-3) [Vitamin D] 2,000 unit PO DAILY 03/23/17 [History] Nut.tx.impaired Digest Fxn [Ensure Clear] 1 bottle PO DAILY 03/23/17 [History] Omeprazole [PriLOSEC] 20 mg PO BID 03/23/17 [History] Quetiapine Fumarate [SEROquel] 25 mg PO HS 03/23/17 [History] Vit C/E/Zn/Coppr/Lutein/Zeaxan [Preservision Areds 2 Softgel] 1 cap PO BID 03/23 [History] Warfarin [Coumadin] 2 mg PO TUSA 03/23/17 [History] 3 Allergy/AdvReac Type Severity Reaction Status Date / Time cephalexin [From Keflex] Allergy Vomiting Verified 12/26/15 12:36 promethazine [From Phenergan] AdvReac See Verified 10/28/16 07:29 Comments All Systems Review: A 10-system review of systems was performed and is negative for pertinent findings except as documented above in the HPI. - Constitutional Constitutional: frequent falls, weakness - Cardiovascular Cardiovascular: as per HPI, dyspnea on exertion, leg edema Physical Examination Vital Signs, Last 4 Hours Temp Pulse Resp BP Pulse Ox 03/24/17 07:45 17 95 03/24/17 07:44 97.6 F 60 18 128/70 100 Vital Signs Temp Pulse Resp BP Pulse Ox 03/24/17 07:45 17 95 03/24/17 07:44 97.6 F 60 18 128/70 100 03/24/17 04:14 98.1 F 62 18 139/57 100 03/24/17 01:10 98.3 F 60 16 121/56 97 03/23/17 22:47 16 98 03/23/17 21:09 98 03/23/17 20:27 97.6 F 72 16 113/67 98 03/23/17 17:55 98.1 F 79 16 121/60 99 Intake and Output 03/23/17 03/24/17 03/24/17 23:59 07:59 15:59 Intake Total 0 / 0 550 / 550 Output Total 200 / 200 275 / 275 120 / 120 Balance -200 / -200 275 / 275 -120 / -120 Intake: Oral 0 / 0 550 / 550 Output: Urine 200 / 200 275 / 275 120 / 120 Other: Meal No fluids given. # Urine Diapers 1 Weight 62.5 kg Blood Glucose* 111 140 General: Conversant, No Apparent Distress HEENT: Atraumatic, Normocephaly, Mucus Membranes Moist Neck: Normal carotid pulses Cardiac: Other (irregularly irregular) Lungs: Other (rhonchi, diminished) Neuro: Alert and responsive, No focal deficits noted Abdomen: Soft, Non-Tender Skin: No rashes noted on visualized skin Musculoskeletal: No Chest Wall Tenderness Extremities: Other (1-2+ BLE edema) Results 03/24/17 00:15 03/24/17 00:15 Lab Results 03/23/17 03/23/17 03/24/17 20:22 20:22 00:15 WBC Hgb Hct Plt Count INR 2.2 Sodium Potassium Chloride Carbon Dioxide BUN Creatinine Glucose Calcium Troponin I 0.16 H* 0.15 H* 03/24/17 03/24/17 03/24/17 00:15 00:15 00:15 WBC 3.8 L Hgb 7.8 L Hct 24.5 L Plt Count 108 L INR 2.1 Sodium 144 Potassium 3.7 Chloride 118 H Carbon Dioxide 18 L BUN 71 H Creatinine 3.32 H Glucose 88 Calcium 7.0 L Troponin I 03/24/17 07:38 WBC Hgb Hct Plt Count INR Sodium Potassium Chloride Carbon Dioxide BUN Creatinine Glucose Calcium Troponin I 0.09 H* - Imaging and Cardiology Echo: report reviewed - EKG Interpretation EKG results cardiology: personally reviewed (paced, underlying A-Fib, no change from prior.), other (12 hr tele AV HR 60, paced) Consult Discharge Plan - Plan Referrals: Francesco Naylor, [Primary Care Provider] - <Niesha Adams - Last Filed: 03/24/17 12:09> Date of Encounter: 03/24/17 - Attending Attestation I have personally performed a face to face evaluation on this patient. I have reviewed and agree with the care plan with OFFICE SPECIALIST: Mr. Michelle presents with mildly elevated, flat and adynamic troponins in the setting of anemia, hemoglobin 7.8 and chronic kidney disease as well as urinary tract infection. Patient denies chest pain. His ECG was without ischemic changes. Suspect demand ischemia. Patient has known mildly reduced LV systolic function on an echo in November 2016 and history of CAD having undergone bypass previously. Recommend checking an echo for reevaluation of LV systolic function. In addition, at this time we recommend stopping Coumadin given decline in known chronic anemia. His hemoglobin presently is lower then baseline. Also, his reports more frequent falls. Despite an elevated CHADSVASC score, Coumadin in this setting appears to be relatively contraindicated. Aspirin is recommended at this time. Agree with IV Lasix for CHF symptoms. Assessment and Plan Discussion w patient/family: The assessment and plan as outlined above was discussed with the patient and/or family members who expressed understanding and agreement. All questions were answered. Thank you for involving us in the care of your patient. Please call with any questions. History of Present Illness History of present illness: Mr. Michelle is a 82 year old male All Systems Review: A 10-system review of systems was performed and is negative for pertinent findings except as documented above in the HPI. Results 03/24/17 00:15 03/24/17 00:15 Lab Results 03/23/17 03/23/17 03/24/17 20:22 20:22 00:15 WBC Hgb Hct Plt Count INR 2.2 Sodium Potassium Chloride Carbon Dioxide BUN Creatinine Glucose Calcium Troponin I 0.16 H* 0.15 H* 03/24/17 03/24/17 03/24/17 00:15 00:15 00:15 WBC 3.8 L Hgb 7.8 L Hct 24.5 L Plt Count 108 L INR 2.1 Sodium 144 Potassium 3.7 Chloride 118 H Carbon Dioxide 18 L BUN 71 H Creatinine 3.32 H Glucose 88 Calcium 7.0 L Troponin I 03/24/17 07:38 WBC Hgb Hct Plt Count INR Sodium Potassium Chloride Carbon Dioxide BUN Creatinine Glucose Calcium Troponin I 0.09 H*
--- NOTE | 2017-03-24 10:51 | Internal Med Progress Note ---
Date of Encounter: 03/24/17 Time of Encounter: 10:30 - Assessment and plan (1) Fall Current Visit: Yes Status: Acute Assessment and plan: Patient presents with generalized weakness and recurrent falls at home. Possibly related to UTI and general deconditioning. Physical and occupational therapy evaluation. Patient would likely benefit from placement in extended care facility as is no longer able to care for him at home. Supportive care and fall precautions. Qualifiers: Encounter type: initial encounter Qualified Code(s): W19.XXXA - Unspecified fall, initial encounter (2) UTI (urinary tract infection) Current Visit: Yes Status: Acute Assessment and plan: Urinalysis shows trace leukocyte esterase, 15-30 WBC, many bacteria. Follow-up urine culture and continue IV Rocephin. Qualifiers: Urinary tract infection type: acute cystitis Hematuria presence: with hematuria Qualified Code(s): N30.01 - Acute cystitis with hematuria (3) Elevated troponin Current Visit: Yes Status: Acute Assessment and plan: Patient is noted to have mild troponin leak, peak troponin 0.16, currently trending down. Likely related to demand ischemia due to underlying infection. Cardiology consult noted, follow-up echocardiogram. (4) CAD (coronary artery disease) Current Visit: Yes Status: Chronic Assessment and plan: Continue aspirin and telemetry monitoring. Check lipid profile. Patient is not noted to be on a beta britta or statin as an outpatient. Qualifiers: Coronary Disease-Associated Artery/Lesion type: bypass graft [place] vs. transplanted heart: [place] heart Associated angina: without angina Qualified Code(s): I25.810 - Atherosclerosis of coronary artery bypass graft(s) without angina pectoris (5) Hypertension Current Visit: Yes Status: Chronic Qualifiers: Hypertension type: essential hypertension Qualified Code(s): I10 - Essential (primary) hypertension (6) Bilateral lower extremity edema Current Visit: Yes Status: Chronic Assessment and plan: Continue oral Lasix. (7) DM2 (diabetes mellitus, type 2) Current Visit: Yes Status: Chronic Assessment and plan: Accu-Chek blood glucose monitoring with sliding scale insulin. Blood sugars noted to be well controlled. Diabetic diet. Qualifiers: Diabetes mellitus complication status: with kidney complications Diabetes mellitus complication detail: with chronic kidney disease Diabetes mellitus residential insulin use: without residential use Chronic kidney disease stage: stage 4 (severe) Qualified Code(s): E11.22 - Type 2 diabetes mellitus with diabetic chronic kidney disease; N18.4 - Chronic kidney disease, stage 4 (severe ); N18.4 - Chronic kidney disease, stage 4 (severe); N18.4 - Chronic kidney disease, stage 4 (severe); N18.4 - Chronic kidney disease, stage 4 (severe) (8) Anemia Current Visit: Yes Status: Chronic Assessment and plan: Macrocytic anemia, likely also related to chronic kidney disease. Check vitamin B12 and folate levels. Qualifiers: Anemia type: unspecified type Qualified Code(s): D64.9 - Anemia, unspecified (9) COPD (chronic obstructive pulmonary disease) Current Visit: Yes Status: Chronic Assessment and plan: Not in acute exacerbation. Continue when necessary bronchodilators, inhaled corticosteroids and supplemental oxygen. Qualifiers: COPD type: unspecified COPD Qualified Code(s): J44.9 - Chronic obstructive pulmonary disease, unspecified (10) CHF (congestive heart failure) Current Visit: Yes Status: Chronic Assessment and plan: Follow-up echocardiogram. Continue Lasix. Qualifiers: Congestive heart failure type: systolic Congestive heart failure chronicity : chronic Qualified Code(s): I50.22 - Chronic systolic (congestive) heart failure (11) A-fib Current Visit: Yes Status: Chronic Assessment and plan: Continue telemetry monitoring. Rate-controlled. Patient is noted to be on Coumadin as an outpatient with therapeutic INR. Cardiology recommends holding Coumadin at this time due to dementia and frequent falls and anemia. Continue ASA. Qualifiers: Atrial fibrillation type: chronic Qualified Code(s): I48.2 - Chronic atrial fibrillation (12) CKD (chronic kidney disease), stage IV Current Visit: Yes Status: Chronic Assessment and plan: Serum creatinine currently stable around his baseline, 3.3 today. Continue sodium bicarbonate, calcium carbonate and Rocaltrol. - Subjective Interval history: Reports feeling well; noted to be coughing; cannot provide much history, states his will be able to provide more details; reports he had problems with his left foot prompting his hospital admission; no chest pain, dyspnea; - Constitutional Vitals: Temp Pulse Resp BP Pulse Ox 97.6 F 60 17 128/70 95 03/24/17 07:44 03/24/17 07:44 03/24/17 07:45 03/24/17 07:44 03/24/17 07:45 General appearance: Present: cooperative, A&O X 3. Absent: answers questions appropriately - Respiratory Respiratory exam: Present: CTAB (coarse breath sounds B/L). Absent: accessory muscle use, rales, rhonchi, wheezes - Cardiovascular Cardiovascular exam: Present: irregular rhythm, +S1, +S2. Absent: diastolic murmur, gallop, rubs, systolic murmur - GI/Abdominal GI/Abdominal exam: Present: normal bowel sounds, soft, no peritoneal signs. Absent: distended, tenderness - Extremities Exam Extremities exam: Present: pedal edema (2+ pitting pedal edema B/L), warm, radial pulses palpable and symmetrical. Absent: calf tenderness, cyanotic Additional comments: LUE diffuse edema - Neurological Exam Neurological exam: Present: CN II-XII intact, oriented X3, no focal deficits. Absent: pronater drift, facial droop, speech deficit Internal Medicine: Result - Labs CBC & Chem 7: 03/24/17 00:15 03/24/17 00:15 Labs: Short CBC 03/24/17 Range/Units 00:15 WBC 3.8 L (4.3-11.1) K/mcL Hgb 7.8 L (12.9-16.9) g/dL Hct 24.5 L (37.5-50.1) % Plt Count 108 L (140-400) K/mcL BMP 03/24/17 00:15 Sodium 144 Potassium 3.7 Chloride 118 H Carbon Dioxide 18 L BUN 71 H Creatinine 3.32 H Glucose 88 Calcium 7.0 L Cardiac Enzymes 03/23/17 03/24/17 03/24/17 Range/Units 20:22 00:15 07:38 Troponin I 0.16 H* 0.15 H* 0.09 H* (0-0.03) ng/mL - ABG Interpretation ABG results: PT/INR, D-dimer PT 23.5 Seconds (9.4-12.1) H 03/24/17 00:15 - VTE Reasons for not Prescribing Prophylaxis: Not indicated-Anticoagulated or INR therapeutic Consult Discharge Plan - Plan Referrals: Francesco Naylor DO [Primary Care Provider] -
[2017-03-24] MEDS ORDERED: *HR* Warfarin 2 MG TABLET PO ONE (18:00)
[2017-03-24] MEDS: Latanoprost 2.5 ML BOTTLE LEFT EYE SCH (21:44)
[2017-03-24] MEDS: GuaiFENesin/Codeine Oral Soln 5 ML UDC PO PRN (21:44)
[2017-03-25 03:24] LABS: Hemoglobin 7.2 g/dL (12.9-16.9); Immature Granulocytes % 0.4 % (0-4); Mean Corpuscular Volume 100.9 fL (83.0-100.0)
[2017-03-25 03:26] LABS: Eosinophils % 0.9 %; Hematocrit 22.3 % (37.5-50.1); Immature Platelets 1.6 % (1.1-6.1); Lymphocytes # 0.4 K/mcL (0.6-4.6); Lymphocytes % 16.5 %; Mean Corpuscular HGB Conc 32.3 g/dL (31.6-35.5); Mean Corpuscular Hemoglobin 32.6 pg (28.0-33.3); Mean Platelet Volume 9.7 fL (9.4-12.4); Monocytes # 0.2 K/mcL (0.0-1.3); Monocytes % 7.4 %; Neutrophils # 1.7 K/mcL (1.6-8.9); Platelet Count 110 K/mcL (140-400); Red Blood Count 2.21 M/mcL (4.19-5.50); Red Cell Distribution Width 13.7 % (11.5-14.5); Segmented Neutrophils % 74.8 %
[2017-03-25 03:29] LABS: Prothrombin Time 33.3 Seconds (9.4-12.1)
[2017-03-25 03:40] LABS: Potassium 3.8 mEq/L (3.5-4.5)
[2017-03-25 03:41] LABS: Calcium 7.1 mg/dL (8.6-10.8); Magnesium 1.2 mg/dL (1.6-2.6)
[2017-03-25] MEDS: Insulin LISPRO 300 UNITS/3 ML VIAL SQ SCH ×4 (07:45→22:02)
[2017-03-25] MEDS: Furosemide 40 MG TABLET PO SCH ×2 (07:52→16:49)
[2017-03-25] MEDS: Aspirin Enteric Coated 81 MG Tablet PO SCH (07:52)
[2017-03-25] MEDS: Cholecalciferol (D-3) 1,000 UNIT TABLET PO SCH (07:52)
[2017-03-25] MEDS: cefTRIAXone 1,000 MG in Water for inj. (sterile) 10 ML IVP SCH (07:53)
[2017-03-25] MEDS: Magnesium Oxide 400 MG TABLET PO SCH ×2 (07:53→22:03)
[2017-03-25] MEDS: Ammonium Lactate 30 APPL/225 GM BOTTLE TP SCH ×2 (07:55→22:02)
[2017-03-25] MEDS: Artificial Tears SOLN 15 ML BOTTLE BOTH EYES SCH ×4 (07:56→22:02)
[2017-03-25] MEDS: Fluticasone Propionate Nasal 50 MCG/SPRAY BOTTLE NS SCH (07:57)
[2017-03-25] MEDS: Budesonide/Formoterol 160/4.5 MDI IH SCH ×2 (09:51→21:22)
--- NOTE | 2017-03-25 10:05 | Internal Med Progress Note ---
Date of Encounter: 03/25/17 Time of Encounter: 10:03 - Assessment and plan (1) Fall Current Visit: Yes Status: Acute Assessment and plan: Patient presents with generalized weakness and recurrent falls at home. Possibly related to UTI and general deconditioning. Physical and occupational therapy evaluation pending. Patient would likely benefit from placement in extended care facility as is no longer able to care for him at home. Supportive care and fall precautions. Qualifiers: Encounter type: initial encounter Qualified Code(s): W19.XXXA - Unspecified fall, initial encounter (2) UTI (urinary tract infection) Current Visit: Yes Status: Acute Assessment and plan: Urinalysis shows trace leukocyte esterase, 15-30 WBC, many bacteria. Preliminary urine culture grows gram-negative rods and continue IV Rocephin. Qualifiers: Urinary tract infection type: acute cystitis Hematuria presence: with hematuria Qualified Code(s): N30.01 - Acute cystitis with hematuria (3) Elevated troponin Current Visit: Yes Status: Acute Assessment and plan: Patient is noted to have mild troponin leak, peak troponin 0.16, currently trending down. Likely related to demand ischemia due to underlying infection. Cardiology consult noted, follow-up echocardiogram. (4) CAD (coronary artery disease) Current Visit: Yes Status: Chronic Assessment and plan: Continue aspirin and telemetry monitoring. Check lipid profile. Patient is not noted to be on a beta britta or statin as an outpatient. Qualifiers: Coronary Disease-Associated Artery/Lesion type: bypass graft [place] vs. transplanted heart: [place] heart Associated angina: without angina Qualified Code(s): I25.810 - Atherosclerosis of coronary artery bypass graft(s) without angina pectoris (5) Hypertension Current Visit: Yes Status: Chronic Qualifiers: Hypertension type: essential hypertension Qualified Code(s): I10 - Essential (primary) hypertension (6) Bilateral lower extremity edema Current Visit: Yes Status: Chronic Assessment and plan: Continue oral Lasix. Improving. (7) DM2 (diabetes mellitus, type 2) Current Visit: Yes Status: Chronic Assessment and plan: Accu-Chek blood glucose monitoring with sliding scale insulin. Blood sugars noted to be well controlled. Diabetic diet. Qualifiers: Diabetes mellitus complication status: with kidney complications Diabetes mellitus complication detail: with chronic kidney disease Diabetes mellitus local intermodal truck driver insulin use: without local intermodal truck driver use Chronic kidney disease stage: stage 4 (severe) Qualified Code(s): E11.22 - Type 2 diabetes mellitus with diabetic chronic kidney disease; N18.4 - Chronic kidney disease, stage 4 (severe ); N18.4 - Chronic kidney disease, stage 4 (severe); N18.4 - Chronic kidney disease, stage 4 (severe); N18.4 - Chronic kidney disease, stage 4 (severe) (8) Anemia Current Visit: Yes Status: Chronic Assessment and plan: Macrocytic anemia, likely also related to chronic kidney disease. Iron profile , serum vitamin B12 and folate levels noted to be in acceptable range. Noted to have drop in hemoglobin today to 7.2. Will transfuse 2 units PRBC, continue to monitor closely. Patient is on Coumadin as an outpatient, this is being held at this time per cardiology recommendations given his frequent falls, dementia and anemia. Qualifiers: Anemia type: unspecified type Qualified Code(s): D64.9 - Anemia, unspecified (9) COPD (chronic obstructive pulmonary disease) Current Visit: Yes Status: Chronic Assessment and plan: Not in acute exacerbation. Continue when necessary bronchodilators, inhaled corticosteroids and supplemental oxygen. Continues to have a moist cough, will start when necessary Tessalon. Pulmonary toilet. Qualifiers: COPD type: unspecified COPD Qualified Code(s): J44.9 - Chronic obstructive pulmonary disease, unspecified (10) CHF (congestive heart failure) Current Visit: Yes Status: Chronic Assessment and plan: Follow-up echocardiogram. Increase Lasix due to moist cough, pedal edema and bibasal crypts. Continue supplemental oxygen as needed. Qualifiers: Congestive heart failure type: systolic Congestive heart failure chronicity : chronic Qualified Code(s): I50.22 - Chronic systolic (congestive) heart failure (11) A-fib Current Visit: Yes Status: Chronic Assessment and plan: Continue telemetry monitoring. Rate-controlled. Hold Coumadin as mentioned above. Continue ASA. Qualifiers: Atrial fibrillation type: chronic Qualified Code(s): I48.2 - Chronic atrial fibrillation (12) CKD (chronic kidney disease), stage IV Current Visit: Yes Status: Chronic Assessment and plan: Serum creatinine currently stable around his baseline, 3.5 today. Continue sodium bicarbonate, calcium carbonate and Rocaltrol. - Subjective Interval history: Reports moist cough; no dyspnea, chest pain; no nausea, vomiting; - Constitutional Vitals: Temp Pulse Resp BP Pulse Ox 98.6 F 60 16 105/52 97 03/25/17 06:56 03/25/17 06:56 03/25/17 09:52 03/25/17 06:56 03/25/17 09:52 General appearance: Present: cooperative, A&O X 3. Absent: answers questions appropriately - Respiratory Respiratory exam: Present: CTAB (bilateral coarse breath sounds and basal crepts ). Absent: accessory muscle use, rales, rhonchi, wheezes - Cardiovascular Cardiovascular exam: Present: RRR, +S1, +S2. Absent: diastolic murmur, gallop, rubs, systolic murmur - GI/Abdominal GI/Abdominal exam: Present: normal bowel sounds, soft, no peritoneal signs. Absent: distended, tenderness - Extremities Exam Extremities exam: Present: pedal edema, warm, radial pulses palpable and symmetrical. Absent: calf tenderness, cyanotic Internal Medicine: Result - Labs CBC & Chem 7: 03/26/17 09:52 03/26/17 09:52 Labs: Short CBC 03/25/17 Range/Units 03:10 WBC 2.3 L (4.3-11.1) K/mcL Hgb 7.2 L (12.9-16.9) g/dL Hct 22.3 L (37.5-50.1) % Plt Count 110 L (140-400) K/mcL Neutrophils # 1.7 (1.6-8.9) K/mcL BMP 03/25/17 03:10 Sodium 143 Potassium 3.8 Chloride 117 H Carbon Dioxide 18 L BUN 73 H Creatinine 3.56 H Glucose 71 Calcium 7.1 L - ABG Interpretation ABG results: PT/INR, D-dimer PT 33.3 Seconds (9.4-12.1) H 03/25/17 03:10 - VTE Reasons for not Prescribing Prophylaxis: Not indicated-Anticoagulated or INR therapeutic Consult Discharge Plan - Plan Referrals: Francesco Naylor DO [Primary Care Provider] - (will wait on d/c plans. Possible ECF )
[2017-03-25] MEDS ORDERED: 0.9 % Sodium Chloride 250 ML ONE ×2 (11:45→15:09)
[2017-03-25] MEDS: Benzonatate 100 MG CAPSULE PO SCH ×2 (15:04→22:03)
[2017-03-25] MEDS: GuaiFENesin/Codeine Oral Soln 5 ML UDC PO PRN (18:30)
[2017-03-25] MEDS: Latanoprost 2.5 ML BOTTLE LEFT EYE SCH (22:03)
[2017-03-26 05:15] LABS: INR 2.8; Prothrombin Time 30.6 Seconds (9.4-12.1)
[2017-03-26] MEDS: Insulin LISPRO 300 UNITS/3 ML VIAL SQ SCH ×4 (09:03→21:32)
[2017-03-26] MEDS: cefTRIAXone 1,000 MG in Water for inj. (sterile) 10 ML IVP SCH (09:21)
[2017-03-26] MEDS: Furosemide 40 MG TABLET PO SCH ×2 (09:22→16:32)
[2017-03-26] MEDS: Aspirin Enteric Coated 81 MG Tablet PO SCH (09:22)
[2017-03-26] MEDS: Cholecalciferol (D-3) 1,000 UNIT TABLET PO SCH (09:22)
[2017-03-26] MEDS: Benzonatate 100 MG CAPSULE PO SCH ×3 (09:22→22:12)
[2017-03-26] MEDS: Magnesium Oxide 400 MG TABLET PO SCH ×2 (09:22→22:12)
[2017-03-26] MEDS: Ammonium Lactate 30 APPL/225 GM BOTTLE TP SCH ×2 (09:23→22:42)
[2017-03-26] MEDS: Artificial Tears SOLN 15 ML BOTTLE BOTH EYES SCH ×4 (09:23→22:42)
[2017-03-26] MEDS: Fluticasone Propionate Nasal 50 MCG/SPRAY BOTTLE NS SCH (09:24)
[2017-03-26 10:00] LABS: Basophils % 0.4 %; Eosinophils % 1.5 %; Hematocrit 34.3 % (37.5-50.1); Immature Platelets 1.8 % (1.1-6.1); Lymphocytes # 0.5 K/mcL (0.6-4.6); Lymphocytes % 18.3 %; Mean Corpuscular HGB Conc 32.4 g/dL (31.6-35.5); Mean Corpuscular Hemoglobin 30.9 pg (28.0-33.3); Mean Corpuscular Volume 95.5 fL (83.0-100.0); Mean Platelet Volume 9.9 fL (9.4-12.4); Monocytes # 0.2 K/mcL (0.0-1.3); Platelet Count 117 K/mcL (140-400); Red Blood Count 3.59 M/mcL (4.19-5.50); Red Cell Distribution Width 16.2 % (11.5-14.5); Segmented Neutrophils % 72.8 %
[2017-03-26 10:04] LABS: Hemoglobin 11.1 g/dL (12.9-16.9)
[2017-03-26 10:10] LABS: Calcium 7.3 mg/dL (8.6-10.8); Magnesium 1.6 mg/dL (1.6-2.6); Potassium 3.6 mEq/L (3.5-4.5)
--- NOTE | 2017-03-26 10:27 | Internal Med Progress Note ---
Date of Encounter: 03/26/17 Time of Encounter: 10:25 - Assessment and plan (1) Fall Current Visit: Yes Status: Acute Assessment and plan: Patient presents with generalized weakness and recurrent falls at home. Possibly related to UTI and general deconditioning. Physical and occupational therapy evaluation noted, recommend ECF placement; plan of care d/w at bedside, she requests placement due to difficulty at home due to patient's dementia and weakness; medical services manager consulted; Supportive care and fall precautions. Qualifiers: Encounter type: initial encounter Qualified Code(s): W19.XXXA - Unspecified fall, initial encounter (2) UTI (urinary tract infection) Current Visit: Yes Status: Acute Assessment and plan: Urinalysis shows trace leukocyte esterase, 15-30 WBC, many bacteria. Urine culture grows pansensitive Klebsiella, continue IV Rocephin. Qualifiers: Urinary tract infection type: acute cystitis Hematuria presence: with hematuria Qualified Code(s): N30.01 - Acute cystitis with hematuria (3) Elevated troponin Current Visit: Yes Status: Acute Assessment and plan: Patient is noted to have mild troponin leak, peak troponin 0.16, currently trending down. Likely related to demand ischemia due to underlying infection. Cardiology f/up noted- no further testing; (4) CAD (coronary artery disease) Current Visit: Yes Status: Chronic Assessment and plan: Continue aspirin and telemetry monitoring. Check lipid profile. Patient is not noted to be on a beta britta or statin as an outpatient. Qualifiers: Coronary Disease-Associated Artery/Lesion type: bypass graft [place] vs. transplanted heart: [place] heart Associated angina: without angina Qualified Code(s): I25.810 - Atherosclerosis of coronary artery bypass graft(s) without angina pectoris (5) Hypertension Current Visit: Yes Status: Chronic Qualifiers: Hypertension type: essential hypertension Qualified Code(s): I10 - Essential (primary) hypertension (6) Bilateral lower extremity edema Current Visit: Yes Status: Chronic Assessment and plan: Continue oral Lasix. Improving. Persistent left UE edema may be dependent and positional as patient always lies on his left side; (7) DM2 (diabetes mellitus, type 2) Current Visit: Yes Status: Chronic Assessment and plan: Accu-Chek blood glucose monitoring with sliding scale insulin. Blood sugars noted to be well controlled. Diabetic diet. Qualifiers: Diabetes mellitus complication status: with kidney complications Diabetes mellitus complication detail: with chronic kidney disease Diabetes mellitus sap architect insulin use: without custodial use Chronic kidney disease stage: stage 4 (severe) Qualified Code(s): E11.22 - Type 2 diabetes mellitus with diabetic chronic kidney disease; N18.4 - Chronic kidney disease, stage 4 (severe ); N18.4 - Chronic kidney disease, stage 4 (severe); N18.4 - Chronic kidney disease, stage 4 (severe); N18.4 - Chronic kidney disease, stage 4 (severe) (8) Anemia Current Visit: Yes Status: Chronic Assessment and plan: Macrocytic anemia, likely also related to chronic kidney disease. Iron profile , serum vitamin B12 and folate levels noted to be in acceptable range. Hb improved today s/p 2units PRBC transfusion; Patient is on Coumadin as an outpatient, this is being held at this time per cardiology recommendations given his frequent falls, dementia and anemia. Qualifiers: Anemia type: unspecified type Qualified Code(s): D64.9 - Anemia, unspecified (9) COPD (chronic obstructive pulmonary disease) Current Visit: Yes Status: Chronic Assessment and plan: Not in acute exacerbation. Continue when necessary bronchodilators, inhaled corticosteroids and supplemental oxygen. when necessary Tessalon. cough improving. Pulmonary toilet. Qualifiers: COPD type: unspecified COPD Qualified Code(s): J44.9 - Chronic obstructive pulmonary disease, unspecified (10) CHF (congestive heart failure) Current Visit: Yes Status: Chronic Assessment and plan: Echocardiogram currently shows improved EF 60%, mild concentric LVH, segmental WMA; continue Lasix; Cardiology recommends no further testing, signed off today ; Continue supplemental oxygen as needed. Qualifiers: Congestive heart failure type: systolic Congestive heart failure chronicity : chronic Qualified Code(s): I50.22 - Chronic systolic (congestive) heart failure (11) A-fib Current Visit: Yes Status: Chronic Assessment and plan: Continue telemetry monitoring. Rate-controlled. Hold Coumadin as mentioned above. Continue ASA. Qualifiers: Atrial fibrillation type: chronic Qualified Code(s): I48.2 - Chronic atrial fibrillation (12) CKD (chronic kidney disease), stage IV Current Visit: Yes Status: Chronic Assessment and plan: Serum creatinine currently stable around his baseline, 3.5; Continue sodium bicarbonate, calcium carbonate and Rocaltrol. - Subjective Interval history: Reports feeling a little better but not quite well; moist cough and leg swelling improving; left forearm swelling persistent; tolerates diet; - Constitutional Vitals: Temp Pulse Resp BP Pulse Ox 97.6 F 69 16 129/66 95 03/26/17 06:39 03/26/17 06:39 03/26/17 06:39 03/26/17 06:39 03/26/17 06:39 General appearance: Present: cooperative, A&O X 2. Absent: answers questions appropriately - Respiratory Respiratory exam: Present: rales (bibasal crepts; coarse breath sounds B/L). Absent: accessory muscle use, rhonchi, wheezes - Cardiovascular Cardiovascular exam: Present: RRR, +S1, +S2. Absent: diastolic murmur, gallop, rubs, systolic murmur - GI/Abdominal GI/Abdominal exam: Present: normal bowel sounds, soft, no peritoneal signs. Absent: distended, tenderness - Extremities Exam Extremities exam: Present: pedal edema (improving pedal edema B/L), warm, radial pulses palpable and symmetrical. Absent: calf tenderness, cyanotic Additional comments: LUE- diffuse pitting edema over left forearm, extending over elbow and lower arm ; no erythema or tenderness - Neurological Exam Neurological exam: Present: CN II-XII intact, no focal deficits. Absent: pronater drift, facial droop, speech deficit Internal Medicine: Result - Labs CBC & Chem 7: 03/26/17 09:52 03/26/17 09:52 Labs: Short CBC 03/26/17 Range/Units 09:52 WBC 2.7 L (4.3-11.1) K/mcL Hgb 11.1 L D (12.9-16.9) g/dL Hct 34.3 L (37.5-50.1) % Plt Count 117 L (140-400) K/mcL Neutrophils # 2.0 (1.6-8.9) K/mcL BMP 03/26/17 09:52 Sodium 144 Potassium 3.6 Chloride 116 H Carbon Dioxide 20 BUN 71 H Creatinine 3.34 H Glucose 83 Calcium 7.3 L - ABG Interpretation ABG results: PT/INR, D-dimer PT 30.6 Seconds (9.4-12.1) H 03/26/17 04:39 - VTE Reasons for not Prescribing Prophylaxis: Not indicated-Anticoagulated or INR therapeutic Consult Discharge Plan - Plan Referrals: Francesco Naylor DO [Primary Care Provider] - (will wait on d/c plans. Possible ECF )
[2017-03-26] MEDS: Budesonide/Formoterol 160/4.5 MDI IH SCH ×2 (10:43→19:58)
--- NOTE | 2017-03-26 15:31 | Event Note ---
Date of Encounter: 03/26/17 Time of Encounter: 15:27 - Cardiology Event Note Troponins downtrended--0.13, 0.16, 0.15, 0.09 in setting of UTI, CKD--likely demand ischemia. Prior echo EF 45-50% without segmental wall motion abnormalities. Current echo resulted. EF has improved to 60%. Mild concentric left ventricular hypertrophy. Mild segmental left ventricular systolic dysfunction apical septal hypokinesis. Given overall improvement in EF, no further cardiac testing is warranted. Cardiology signing off. Reconsult PRN.
[2017-03-26] MEDS: Latanoprost 2.5 ML BOTTLE LEFT EYE SCH (23:22)
[2017-03-27 07:31] LABS: Chol/HDL Ratio 2.7 (0-4.9)
[2017-03-27] MEDS: Budesonide/Formoterol 160/4.5 MDI IH SCH ×2 (07:49→22:04)
[2017-03-27] MEDS: Insulin LISPRO 300 UNITS/3 ML VIAL SQ SCH ×4 (08:02→21:39)
[2017-03-27] MEDS: Cholecalciferol (D-3) 1,000 UNIT TABLET PO SCH (09:52)
[2017-03-27] MEDS: Furosemide 40 MG TABLET PO SCH ×2 (09:52→17:08)
[2017-03-27] MEDS: Artificial Tears SOLN 15 ML BOTTLE BOTH EYES SCH ×4 (09:53→21:54)
[2017-03-27] MEDS: Benzonatate 100 MG CAPSULE PO SCH ×3 (09:53→21:55)
[2017-03-27] MEDS: Magnesium Oxide 400 MG TABLET PO SCH ×2 (09:53→21:56)
[2017-03-27] MEDS: Ammonium Lactate 30 APPL/225 GM BOTTLE TP SCH ×2 (09:53→21:54)
[2017-03-27] MEDS: Fluticasone Propionate Nasal 50 MCG/SPRAY BOTTLE NS SCH (09:54)
[2017-03-27] MEDS: cefTRIAXone 1,000 MG in Water for inj. (sterile) 10 ML IVP SCH (09:54)
--- NOTE | 2017-03-27 10:02 | Internal Med Progress Note ---
<Curry Styles - Last Filed: 03/27/17 13:19> Date of Encounter: 03/27/17 Time of Encounter: 08:45 - Assessment and plan (1) Fall Current Visit: Yes Status: Acute Assessment and plan: Patient presents with generalized weakness and recurrent falls at home. -Possibly related to UTI and general deconditioning. -information services consultant consulted; Supportive care and fall precautions. -Will speak to social work today to determine if he can qualify for placement. Qualifiers: Encounter type: initial encounter Qualified Code(s): W19.XXXA - Unspecified fall, initial encounter (2) UTI (urinary tract infection) Current Visit: Yes Status: Acute Assessment and plan: Urinalysis shows trace leukocyte esterase, 15-30 WBC, many bacteria. -Urine culture grows pansensitive Klebsiella. -Rocephin IV 1000 mg daily. Started on 03/24/17, day 4. -Rocephin will be d/c; start oral ciprofloxacin 500 mg PO daily for 10 days. Qualifiers: Urinary tract infection type: acute cystitis Hematuria presence: with hematuria Qualified Code(s): N30.01 - Acute cystitis with hematuria (3) CAD (coronary artery disease) Current Visit: Yes Status: Chronic Assessment and plan: Continue aspirin and telemetry monitoring. Qualifiers: Coronary Disease-Associated Artery/Lesion type: bypass graft [place] vs. transplanted heart: [place] heart Associated angina: without angina Qualified Code(s): I25.810 - Atherosclerosis of coronary artery bypass graft(s) without angina pectoris (4) Bilateral lower extremity edema Current Visit: Yes Status: Chronic Assessment and plan: Improving. Persistent left UE edema may be dependent and positional as patient always lies on his left side; (5) DM2 (diabetes mellitus, type 2) Current Visit: Yes Status: Chronic Assessment and plan: Accu-Chek blood glucose monitoring with sliding scale insulin. -Blood sugars noted to be well controlled. -Glucose this morning was 83. -Diabetic diet. Qualifiers: Diabetes mellitus complication status: with kidney complications Diabetes mellitus complication detail: with chronic kidney disease Diabetes mellitus long term care phlebotomist insulin use: without mcc use Chronic kidney disease stage: stage 4 (severe) Qualified Code(s): E11.22 - Type 2 diabetes mellitus with diabetic chronic kidney disease; N18.4 - Chronic kidney disease, stage 4 (severe ); N18.4 - Chronic kidney disease, stage 4 (severe); N18.4 - Chronic kidney disease, stage 4 (severe); N18.4 - Chronic kidney disease, stage 4 (severe) (6) Anemia Current Visit: Yes Status: Chronic Assessment and plan: Macrocytic anemia, likely also related to chronic kidney disease. -Iron profile, serum vitamin B12 and folate levels noted to be in acceptable range. -Hb improved. s/p 2units PRBC transfusion -Patient is on Coumadin as an outpatient, this is being held at this time per cardiology recommendations given his frequent falls, dementia and anemia. Qualifiers: Anemia type: unspecified type Qualified Code(s): D64.9 - Anemia, unspecified (7) COPD (chronic obstructive pulmonary disease) Current Visit: Yes Status: Chronic Assessment and plan: Not in acute exacerbation. -Continue when necessary bronchodilators, inhaled corticosteroids and supplemental oxygen. -Tessalon PRN. -Patient reports an improvement in breathing. Qualifiers: COPD type: unspecified COPD Qualified Code(s): J44.9 - Chronic obstructive pulmonary disease, unspecified (8) CHF (congestive heart failure) Current Visit: Yes Status: Chronic Assessment and plan: Echocardiogram currently shows improved EF 60%, mild concentric LVH, segmental WMA -Continue Lasix -Continue supplemental oxygen as needed. Qualifiers: Congestive heart failure type: systolic Congestive heart failure chronicity : chronic Qualified Code(s): I50.22 - Chronic systolic (congestive) heart failure (9) A-fib Current Visit: Yes Status: Chronic Assessment and plan: Continue telemetry monitoring. -Currently rate-controlled; pulse 60 this morning. -Coumadin held due to potential fall risk. -Continue ASA. Qualifiers: Atrial fibrillation type: chronic Qualified Code(s): I48.2 - Chronic atrial fibrillation (10) CKD (chronic kidney disease), stage IV Current Visit: Yes Status: Chronic Assessment and plan: Serum creatinine currently stable around his baseline, 3.5. -This morning, patient's creatinine was 3.34. - Subjective Interval history: Patient was seen and examined at bedside this morning. Patient states that he is feeling better today. He denies any fever, chills, nausea, vomiting, shortness of breath, or confusion. Patient is alert and oriented 3. He is hard of hearing. Swelling is present in his left upper extremity. Trace pedal edema. - Constitutional Vitals: Temp Pulse Resp BP Pulse Ox 97.6 F 60 16 119/58 94 03/27/17 07:49 03/27/17 07:49 03/27/17 07:49 03/27/17 07:49 03/27/17 07:49 General appearance: Present: cooperative, A&O X 3 - Head Head exam: Present: atraumatic, normal inspection, normocephalic - Neck Neck exam general surgery: Present: full ROM, normal inspection. Absent: lymphadenopathy - Respiratory Respiratory exam: Present: CTAB - Cardiovascular Cardiovascular exam: Present: RRR, +S1, +S2 - GI/Abdominal GI/Abdominal exam: Present: normal bowel sounds, soft. Absent: diminished bowel sounds - Extremities Exam Extremities exam: Present: pedal edema - Skin Skin exam: Present: dry, intact Internal Medicine: Result - Labs CBC & Chem 7: 03/26/17 09:52 03/26/17 09:52 Labs: Short CBC 03/26/17 Range/Units 09:52 WBC 2.7 L (4.3-11.1) K/mcL Hgb 11.1 L D (12.9-16.9) g/dL Hct 34.3 L (37.5-50.1) % Plt Count 117 L (140-400) K/mcL Neutrophils # 2.0 (1.6-8.9) K/mcL BMP 03/26/17 09:52 Sodium 144 Potassium 3.6 Chloride 116 H Carbon Dioxide 20 BUN 71 H Creatinine 3.34 H Glucose 83 Calcium 7.3 L - ABG Interpretation ABG results: PT/INR, D-dimer PT 30.6 Seconds (9.4-12.1) H 03/26/17 04:39 - Impressions Impressions Echocardiogram Limited Views 03/25/17 07:09 Impressions: LVEF 60%. Normal LV chamber size and function. Mild concentric left ventricular hypertrophy. Mild segmental left ventricular systolic dysfunction. Left Ventricular Wall Motion: Rest Echo Findings The apical septal wall was hypokinetic. All other wall segments showed normal motion. Findings: Study Quality * Technically adequate exam. ECG Findings * Normal sinus rhythm. Left Ventricle * LVEF 60%. * Normal LV chamber size and function. * Mild concentric left ventricular hypertrophy. * Mild segmental left ventricular systolic dysfunction. Right Ventricle * Normal right ventricular structure and function. IVC * Normal IVC dimensions and inspiratory collapse. Device lead * A device lead was visualized in the right atrium and right ventricle. Aorta * Normally sized aortic root. Pericardium * There is a trivial pericardial effusion present. - VTE Reasons for not Prescribing Prophylaxis: Not indicated-Anticoagulated or INR therapeutic Consult Discharge Plan - Plan Referrals: Francesco Naylor DO [Primary Care Provider] - (will wait on d/c plans. Possible ECF ) <Corine Cole - Last Filed: 03/27/17 15:52> Date of Encounter: 03/27/17 Time of Encounter: 15:49 - Constitutional Vitals: Temp Pulse Resp BP Pulse Ox 97.8 F 60 16 131/77 95 03/27/17 10:39 03/27/17 10:39 03/27/17 10:39 03/27/17 10:39 03/27/17 10:39 Internal Medicine: Result - Labs CBC & Chem 7: 03/26/17 09:52 03/26/17 09:52 - ABG Interpretation ABG results: PT/INR, D-dimer PT 30.6 Seconds (9.4-12.1) H 03/26/17 04:39 - Attending Attestation Patient is an 82y/o male admitted s/p fall and was found to have UTI. Patient has extensive comorbidities and his is not able to provide him with the adequate care he needs at home and is requesting placement. Patient seen and examined at bedside. Pt is frail appearing and needs assistance to get out of bed hide worker on board for placement continue abx for UTI Noted to have bibasilar crackles and was given one time additional dose of Lasix 40mg iV today will continue home medications and closely monitor BP and labs coumadin discontinued due to risk of falls and anemia. Started on aspirin 81mg PO qd Case discussed with resident physician Curry Styles, I agree with his documented findings, assessment, and plan.
[2017-03-27] MEDS: Aspirin Enteric Coated 81 MG Tablet PO SCH (10:12)
[2017-03-27] MEDS ORDERED: Furosemide 40 MG/4 ML VIAL IVP ONE (10:24)
[2017-03-27] MEDS: Latanoprost 2.5 ML BOTTLE LEFT EYE SCH (23:01)
[2017-03-28 06:33] LABS: Basophils % 0.3 %; Hemoglobin 11.7 g/dL (12.9-16.9); Lymphocytes # 0.6 K/mcL (0.6-4.6); Lymphocytes % 20.8 %; Mean Corpuscular HGB Conc 32.5 g/dL (31.6-35.5); Mean Corpuscular Hemoglobin 30.8 pg (28.0-33.3); Mean Corpuscular Volume 94.7 fL (83.0-100.0); Monocytes # 0.2 K/mcL (0.0-1.3); Monocytes % 8.3 %; Nucleated Red Blood Cells 0.7 /100 WBC (0); Platelet Count 117 K/mcL (140-400); Red Cell Distribution Width 15.6 % (11.5-14.5); Segmented Neutrophils % 69.6 %
[2017-03-28 06:49] LABS: Platelet Estimate Slight Decrease (Normal)
[2017-03-28 06:57] LABS: Calcium 7.6 mg/dL (8.6-10.8); Magnesium 1.6 mg/dL (1.6-2.6); Phosphorous 2.6 mg/dL (2.3-4.7); Potassium 3.3 mEq/L (3.5-4.5)
[2017-03-28] MEDS: Benzonatate 100 MG CAPSULE PO SCH ×3 (07:57→21:33)
[2017-03-28] MEDS: Cholecalciferol (D-3) 1,000 UNIT TABLET PO SCH (07:57)
[2017-03-28] MEDS: Magnesium Oxide 400 MG TABLET PO SCH ×2 (07:57→21:30)
[2017-03-28] MEDS: Aspirin Enteric Coated 81 MG Tablet PO SCH (07:57)
[2017-03-28] MEDS: Insulin LISPRO 300 UNITS/3 ML VIAL SQ SCH ×4 (07:58→21:31)
[2017-03-28] MEDS: Artificial Tears SOLN 15 ML BOTTLE BOTH EYES SCH ×4 (07:58→21:27)
[2017-03-28] MEDS: Fluticasone Propionate Nasal 50 MCG/SPRAY BOTTLE NS SCH (07:58)
[2017-03-28] MEDS: Ammonium Lactate 30 APPL/225 GM BOTTLE TP SCH ×2 (07:58→21:28)
[2017-03-28] MEDS: Furosemide 40 MG TABLET PO SCH ×2 (07:58→17:32)
[2017-03-28] MEDS: Budesonide/Formoterol 160/4.5 MDI IH SCH ×2 (10:53→22:46)
--- NOTE | 2017-03-28 15:26 | Internal Med Progress Note ---
<Curry Styles - Last Filed: 03/28/17 15:32> Date of Encounter: 03/28/17 Time of Encounter: 10:45 - Assessment and plan (1) Fall Current Visit: Yes Status: Acute Assessment and plan: Patient presents with generalized weakness and recurrent falls at home. -Possibly related to UTI and general deconditioning. -supervisor customer services consulted. Attempting to find placement at the [facility]. -May be discharged tomorrow. Qualifiers: Encounter type: initial encounter Qualified Code(s): W19.XXXA - Unspecified fall, initial encounter (2) UTI (urinary tract infection) Current Visit: Yes Status: Acute Assessment and plan: Urinalysis shows trace leukocyte esterase, 15-30 WBC, many bacteria. -Urine culture grew pansensitive Klebsiella. Plan: -Rocephin IV 1000 mg daily was started on 03/24/17; was discontinued on . -Oral ciprofloxacin 500 mg by mouth daily was started on 03/28/17. -Patient is day 5 out of 10 antibiotic treatment. Qualifiers: Urinary tract infection type: acute cystitis Hematuria presence: with hematuria Qualified Code(s): N30.01 - Acute cystitis with hematuria (3) CAD (coronary artery disease) Current Visit: Yes Status: Chronic Assessment and plan: Continue aspirin and telemetry monitoring. Qualifiers: Coronary Disease-Associated Artery/Lesion type: bypass graft [place] vs. transplanted heart: [place] heart Associated angina: without angina Qualified Code(s): I25.810 - Atherosclerosis of coronary artery bypass graft(s) without angina pectoris (4) Bilateral lower extremity edema Current Visit: Yes Status: Chronic Assessment and plan: Improving. Persistent left UE edema may be dependent and positional as patient always lies on his left side. (5) DM2 (diabetes mellitus, type 2) Current Visit: Yes Status: Chronic Assessment and plan: Accu-Chek blood glucose monitoring with sliding scale insulin. -Blood sugars noted to be well controlled. -Glucose this morning was 93. -Diabetic diet. Qualifiers: Diabetes mellitus complication status: with kidney complications Diabetes mellitus complication detail: with chronic kidney disease Diabetes mellitus penitentiary insulin use: without penitentiary use Chronic kidney disease stage: stage 4 (severe) Qualified Code(s): E11.22 - Type 2 diabetes mellitus with diabetic chronic kidney disease; N18.4 - Chronic kidney disease, stage 4 (severe ); N18.4 - Chronic kidney disease, stage 4 (severe); N18.4 - Chronic kidney disease, stage 4 (severe); N18.4 - Chronic kidney disease, stage 4 (severe) (6) Anemia Current Visit: Yes Status: Chronic Assessment and plan: Macrocytic anemia, likely also related to chronic kidney disease. -Iron profile, serum vitamin B12 and folate levels noted to be in acceptable range. -Hb improved. s/p 2units PRBC transfusion -Patient is on Coumadin as an outpatient, this is being held at this time per cardiology recommendations given his frequent falls, dementia and anemia. -Patient hemoglobin level was 11.7 this morning. Qualifiers: Anemia type: unspecified type Qualified Code(s): D64.9 - Anemia, unspecified (7) COPD (chronic obstructive pulmonary disease) Current Visit: Yes Status: Chronic Assessment and plan: Not in acute exacerbation. -Continue when necessary bronchodilators, inhaled corticosteroids and supplemental oxygen. -Tessalon PRN. Qualifiers: COPD type: unspecified COPD Qualified Code(s): J44.9 - Chronic obstructive pulmonary disease, unspecified (8) CHF (congestive heart failure) Current Visit: Yes Status: Chronic Assessment and plan: Echocardiogram currently shows improved EF 60%, mild concentric LVH, segmental WMA -Continue Lasix -Continue supplemental oxygen as needed. Qualifiers: Congestive heart failure type: systolic Congestive heart failure chronicity : chronic Qualified Code(s): I50.22 - Chronic systolic (congestive) heart failure (9) A-fib Current Visit: Yes Status: Chronic Assessment and plan: Continue telemetry monitoring. -Currently rate-controlled; pulse 60 this morning. -Coumadin held due to potential fall risk. -Continue ASA. Qualifiers: Atrial fibrillation type: chronic Qualified Code(s): I48.2 - Chronic atrial fibrillation (10) CKD (chronic kidney disease), stage IV Current Visit: Yes Status: Chronic Assessment and plan: Serum creatinine currently stable around his baseline, 3.5. -This morning, patient's creatinine was 3.32. - Subjective Interval history: Patient was seen and examined at bedside this morning. Patient does not appear to be very responsive this morning. Patient does not answer questions; is capable of making eye contact, but falls asleep shortly after. Appears very drowsy. Does not appear in any acute distress. Left upper extremity edema still present. - Constitutional Vitals: Temp Pulse Resp BP Pulse Ox 97.4 F L 61 16 128/73 100 03/28/17 11:31 03/28/17 11:31 03/28/17 11:31 03/28/17 11:31 03/28/17 11:31 General appearance: Absent: answers questions appropriately - Neck Neck exam general surgery: Present: supple, trachea midline. Absent: lymphadenopathy - Respiratory Respiratory exam: Present: decreased breath sounds. Absent: accessory muscle use, rales, rhonchi, wheezes - Cardiovascular Cardiovascular exam: Present: RRR, +S1, +S2. Absent: diastolic murmur, gallop, rubs, systolic murmur - Extremities Exam Extremities exam: Present: pedal edema, warm, radial pulses palpable and symmetrical. Absent: calf tenderness, cyanotic Additional comments: Trace pedal edema present bilaterally. -LUE edema. -Upper extremity edema is unchanged from yesterday. - Skin Skin exam: Present: dry, intact Internal Medicine: Result - Labs CBC & Chem 7: 03/28/17 06:17 03/28/17 06:17 Labs: Short CBC 03/28/17 Range/Units 06:17 WBC 2.9 L (4.3-11.1) K/mcL Hgb 11.7 L (12.9-16.9) g/dL Hct 36.0 L (37.5-50.1) % Plt Count 117 L (140-400) K/mcL Neutrophils # 2.0 (1.6-8.9) K/mcL BMP 03/28/17 06:17 Sodium 145 Potassium 3.3 L Chloride 112 H Carbon Dioxide 24 BUN 75 H Creatinine 3.32 H Glucose 93 Calcium 7.6 L - ABG Interpretation ABG results: PT/INR, D-dimer PT 30.6 Seconds (9.4-12.1) H 03/26/17 04:39 - VTE Reasons for not Prescribing Prophylaxis: Not indicated-Anticoagulated or INR therapeutic Documentation of Mechanical Device: Intermittent pneumatic compression device Consult Discharge Plan - Plan Referrals: Francesco Naylor DO [Primary Care Provider] - (will wait on d/c plans. Possible ECF ) <Corine Cole - Last Filed: 03/28/17 15:57> Date of Encounter: 03/28/17 - Constitutional Vitals: Temp Pulse Resp BP Pulse Ox 97.4 F L 61 16 128/73 100 03/28/17 11:31 03/28/17 11:31 03/28/17 11:31 03/28/17 11:31 03/28/17 11:31 Internal Medicine: Result - Labs CBC & Chem 7: 03/28/17 06:17 03/28/17 06:17 Labs: Short CBC 03/28/17 Range/Units 06:17 WBC 2.9 L (4.3-11.1) K/mcL Hgb 11.7 L (12.9-16.9) g/dL Hct 36.0 L (37.5-50.1) % Plt Count 117 L (140-400) K/mcL Neutrophils # 2.0 (1.6-8.9) K/mcL BMP 03/28/17 06:17 Sodium 145 Potassium 3.3 L Chloride 112 H Carbon Dioxide 24 BUN 75 H Creatinine 3.32 H Glucose 93 Calcium 7.6 L - ABG Interpretation ABG results: PT/INR, D-dimer PT 30.6 Seconds (9.4-12.1) H 03/26/17 04:39 - Attending Attestation Patient is an 82y/o male admitted s/p fall and was found to have UTI. Patient independently seen and examined at bedside. Pt appears to be somnolent but easily arousable. die storage worker on board in finding placement. Likely d/c in am if ECF placement is arranged continue abx for UTI (day 09/13) discontinued coumadin due to recurrent falls and anemia rate controlled vitals and labs reviewed. Case discussed with resident physician, Curry Styles, I agree with his documented findings, assessment,and plan, except as listed above.
[2017-03-28] MEDS: Latanoprost 2.5 ML BOTTLE LEFT EYE SCH (21:27)
[2017-03-29] MEDS: GuaiFENesin/Codeine Oral Soln 5 ML UDC PO PRN (04:49)
[2017-03-29 05:44] LABS: Basophils % 0.3 %; Hematocrit 34.3 % (37.5-50.1); Hemoglobin 11.2 g/dL (12.9-16.9); Immature Granulocytes % 0.3 % (0-4); Lymphocytes # 0.7 K/mcL (0.6-4.6); Lymphocytes % 21.4 %; Mean Corpuscular HGB Conc 32.7 g/dL (31.6-35.5); Mean Corpuscular Hemoglobin 31.2 pg (28.0-33.3); Mean Corpuscular Volume 95.5 fL (83.0-100.0); Mean Platelet Volume 9.7 fL (9.4-12.4); Monocytes # 0.2 K/mcL (0.0-1.3); Monocytes % 5.2 %; Neutrophils # 2.2 K/mcL (1.6-8.9); Platelet Count 104 K/mcL (140-400); Red Blood Count 3.59 M/mcL (4.19-5.50); Red Cell Distribution Width 15.4 % (11.5-14.5); Segmented Neutrophils % 71.8 %
[2017-03-29 05:56] LABS: Magnesium 1.8 mg/dL (1.6-2.6); Phosphorous 2.8 mg/dL (2.3-4.7)
[2017-03-29 05:58] LABS: Calcium 7.9 mg/dL (8.6-10.8); Potassium 3.8 mEq/L (3.5-4.5)
[2017-03-29] MEDS: Insulin LISPRO 300 UNITS/3 ML VIAL SQ SCH ×4 (07:44→20:23)
[2017-03-29] MEDS: Cholecalciferol (D-3) 1,000 UNIT TABLET PO SCH (07:45)
[2017-03-29] MEDS: Benzonatate 100 MG CAPSULE PO SCH ×3 (07:45→20:22)
[2017-03-29] MEDS: Magnesium Oxide 400 MG TABLET PO SCH ×2 (07:46→20:23)
[2017-03-29] MEDS: Artificial Tears SOLN 15 ML BOTTLE BOTH EYES SCH ×4 (07:46→20:34)
[2017-03-29] MEDS: Furosemide 40 MG TABLET PO SCH ×2 (07:46→15:28)
[2017-03-29] MEDS: Ammonium Lactate 30 APPL/225 GM BOTTLE TP SCH ×2 (07:46→20:31)
[2017-03-29] MEDS: Aspirin Enteric Coated 81 MG Tablet PO SCH (07:46)
[2017-03-29] MEDS: Fluticasone Propionate Nasal 50 MCG/SPRAY BOTTLE NS SCH (07:46)
[2017-03-29] MEDS: Budesonide/Formoterol 160/4.5 MDI IH SCH ×2 (07:53→19:59)
--- NOTE | 2017-03-29 10:36 | Internal Med Progress Note ---
<Curry Styles - Last Filed: 03/29/17 12:50> Date of Encounter: 03/29/17 Time of Encounter: 10:00 - Assessment and plan (1) UTI (urinary tract infection) Current Visit: Yes Status: Acute Assessment and plan: Urinalysis shows trace leukocyte esterase, 15-30 WBC, many bacteria. -Urine culture grew pansensitive Klebsiella. Plan: -Rocephin IV 1000 mg daily was started on 03/24/17; was discontinued on . -Oral ciprofloxacin 500 mg by mouth daily was started on 03/28/17. -Patient is day 6 out of 10 antibiotic treatment. Qualifiers: Urinary tract infection type: acute cystitis Hematuria presence: with hematuria Qualified Code(s): N30.01 - Acute cystitis with hematuria (2) Fall Current Visit: Yes Status: Acute Assessment and plan: Patient presents with generalized weakness and recurrent falls at home. -Possibly related to UTI and general deconditioning. Qualifiers: Encounter type: initial encounter Qualified Code(s): W19.XXXA - Unspecified fall, initial encounter (3) CAD (coronary artery disease) Current Visit: Yes Status: Chronic Assessment and plan: Continue ASA 81 mg by mouth daily and telemetry monitoring. Qualifiers: Coronary Disease-Associated Artery/Lesion type: bypass graft [place] vs. transplanted heart: [place] heart Associated angina: without angina Qualified Code(s): I25.810 - Atherosclerosis of coronary artery bypass graft(s) without angina pectoris (4) Bilateral lower extremity edema Current Visit: Yes Status: Chronic Assessment and plan: Patient's pedal edema appears worse today compared to yesterday. +2. Persistent left UE edema may be dependent and positional as patient always lies on his left side. (5) DM2 (diabetes mellitus, type 2) Current Visit: Yes Status: Chronic Assessment and plan: Accu-Chek blood glucose monitoring with sliding scale insulin. -Blood sugars noted to be well controlled. -Glucose this morning was 104. -Diabetic diet. Qualifiers: Diabetes mellitus complication status: with kidney complications Diabetes mellitus complication detail: with chronic kidney disease Diabetes mellitus local company intermodal truck driver insulin use: without senior care use Chronic kidney disease stage: stage 4 (severe) Qualified Code(s): E11.22 - Type 2 diabetes mellitus with diabetic chronic kidney disease; N18.4 - Chronic kidney disease, stage 4 (severe ); N18.4 - Chronic kidney disease, stage 4 (severe); N18.4 - Chronic kidney disease, stage 4 (severe); N18.4 - Chronic kidney disease, stage 4 (severe) (6) Anemia Current Visit: Yes Status: Chronic Assessment and plan: Macrocytic anemia, likely also related to chronic kidney disease. -Iron profile, serum vitamin B12 and folate levels noted to be in acceptable range. -Hb improved. s/p 2units PRBC transfusion -Patient is on Coumadin as an outpatient, this is being held at this time per cardiology recommendations given his frequent falls, dementia and anemia. -Patient hemoglobin level was 11.2 this morning. Qualifiers: Anemia type: unspecified type Qualified Code(s): D64.9 - Anemia, unspecified (7) COPD (chronic obstructive pulmonary disease) Current Visit: Yes Status: Chronic Assessment and plan: Not in acute exacerbation. -Continue when necessary bronchodilators, inhaled corticosteroids and supplemental oxygen. -Tessalon PRN. Qualifiers: COPD type: unspecified COPD Qualified Code(s): J44.9 - Chronic obstructive pulmonary disease, unspecified (8) CHF (congestive heart failure) Current Visit: Yes Status: Chronic Assessment and plan: Echocardiogram currently shows improved EF 60%, mild concentric LVH, segmental WMA -Continue Lasix -Continue supplemental oxygen as needed. Qualifiers: Congestive heart failure type: systolic Congestive heart failure chronicity : chronic Qualified Code(s): I50.22 - Chronic systolic (congestive) heart failure (9) A-fib Current Visit: Yes Status: Chronic Assessment and plan: Continue telemetry monitoring. -Pulse 94 this morning. -Coumadin held due to potential fall risk. -Continue ASA. Qualifiers: Atrial fibrillation type: chronic Qualified Code(s): I48.2 - Chronic atrial fibrillation (10) CKD (chronic kidney disease), stage IV Current Visit: Yes Status: Chronic Assessment and plan: Serum creatinine currently stable around his baseline, 3.5. -This morning, patient's creatinine was 3.37. - Subjective Interval history: Patient was seen and examined at bedside this morning. Patient does not appear to be very responsive this morning. Patient does not answer questions; is capable of making eye contact, but falls asleep shortly after. Appears very drowsy. Does not appear to be in any respiratory distress. Pedal edema seems to be worse today compared to yesterday. Edema still present in the left upper extremity. - Constitutional Vitals: Temp Pulse Resp BP Pulse Ox 97.6 F 94 17 125/42 94 03/29/17 07:21 03/29/17 07:21 03/29/17 07:55 03/29/17 07:21 03/29/17 07:55 General appearance: Absent: answers questions appropriately - Head Head exam: Present: atraumatic, normocephalic - Neck Neck exam general surgery: Present: supple, trachea midline. Absent: lymphadenopathy - Respiratory Respiratory exam: Present: rales. Absent: accessory muscle use, wheezes Additional comments: Diminished breath sounds, fine bibasilar crackles. - Cardiovascular Cardiovascular exam: Present: RRR, +S1, +S2. Absent: diastolic murmur, gallop, rubs, systolic murmur - Extremities Exam Extremities exam: Present: pedal edema. Absent: calf tenderness, cyanotic Additional comments: Patient has pedal edema bilaterally. Edema appears to be worse today compared to yesterday. Internal Medicine: Result - Labs CBC & Chem 7: 03/29/17 05:29 03/29/17 05:29 Labs: Short CBC 03/29/17 Range/Units 05:29 WBC 3.1 L (4.3-11.1) K/mcL Hgb 11.2 L (12.9-16.9) g/dL Hct 34.3 L (37.5-50.1) % Plt Count 104 L (140-400) K/mcL Neutrophils # 2.2 (1.6-8.9) K/mcL BMP 03/29/17 05:29 Sodium 144 Potassium 3.8 Chloride 112 H Carbon Dioxide 25 BUN 73 H Creatinine 3.37 H Glucose 104 H Calcium 7.9 L - ABG Interpretation ABG results: PT/INR, D-dimer PT 30.6 Seconds (9.4-12.1) H 03/26/17 04:39 - VTE Reasons for not Prescribing Prophylaxis: Not indicated-Anticoagulated or INR therapeutic Documentation of Mechanical Device: Intermittent pneumatic compression device Consult Discharge Plan - Plan Referrals: Francesco Naylor, [Primary Care Provider] - (will wait on d/c plans. Possible ECF ) <Margarito Jhaveri - Last Filed: 03/29/17 13:20> Date of Encounter: 03/29/17 - Constitutional Vitals: Temp Pulse Resp BP Pulse Ox 97.6 F 94 17 125/42 94 03/29/17 07:21 03/29/17 07:21 03/29/17 07:55 03/29/17 07:21 03/29/17 07:55 Internal Medicine: Result - Labs CBC & Chem 7: 03/29/17 05:29 03/29/17 05:29 Labs: Short CBC 03/29/17 Range/Units 05:29 WBC 3.1 L (4.3-11.1) K/mcL Hgb 11.2 L (12.9-16.9) g/dL Hct 34.3 L (37.5-50.1) % Plt Count 104 L (140-400) K/mcL Neutrophils # 2.2 (1.6-8.9) K/mcL BMP 03/29/17 05:29 Sodium 144 Potassium 3.8 Chloride 112 H Carbon Dioxide 25 BUN 73 H Creatinine 3.37 H Glucose 104 H Calcium 7.9 L - ABG Interpretation ABG results: PT/INR, D-dimer PT 30.6 Seconds (9.4-12.1) H 03/26/17 04:39 - Attending Attestation I independent;y interviewed and examined this pt. I agree with the findings, assessment and plan of Dr. Styles, tax services intern. insists on taking pt home despite our concerns he may need SNF. Agree with abx plan as outlined. PT stable for dc. All else as reflected in her progress note. 33 min spent on dc and coord of care.
[2017-03-29] MEDS: Latanoprost 2.5 ML BOTTLE LEFT EYE SCH (20:34)
[2017-03-30] MEDS: Ammonium Lactate 30 APPL/225 GM BOTTLE TP SCH (10:53)
[2017-03-30] MEDS: Fluticasone Propionate Nasal 50 MCG/SPRAY BOTTLE NS SCH (10:53)
[2017-03-30] MEDS: Artificial Tears SOLN 15 ML BOTTLE BOTH EYES SCH ×2 (10:53→13:11)
[2017-03-30] MEDS: Insulin LISPRO 300 UNITS/3 ML VIAL SQ SCH ×2 (10:53→13:11)
[2017-03-30] MEDS: Budesonide/Formoterol 160/4.5 MDI IH SCH (11:04)
[2017-03-30] MEDS: Benzonatate 100 MG CAPSULE PO SCH (11:25)
[2017-03-30] MEDS: Cholecalciferol (D-3) 1,000 UNIT TABLET PO SCH (11:25)
[2017-03-30] MEDS: Magnesium Oxide 400 MG TABLET PO SCH (11:26)
[2017-03-30] MEDS: Aspirin Enteric Coated 81 MG Tablet PO SCH (11:26)
[2017-03-30] MEDS: Furosemide 40 MG TABLET PO SCH (11:26)
--- NOTE | 2017-03-30 13:46 | Discharge Summary ---
<Curry Styles - Last Filed: 03/30/17 14:28> Date of Encounter: 03/30/17 Time of Encounter: 09:00 - Discharge Diagnosis (1) UTI (urinary tract infection) Priority: Primary Status: Acute Comments: Patient was originally placed on Rocephin 1000 mg Daily (started 03/24/17, d/c on 03/27/17.) -Ciprofloxacin 500 mg PO Daily started on 03/28/17. -Patient is day 11/13 of antibiotic treatment. -Patient will take 3 more doses of ciprofloxacin after diacharge. Qualifiers: Urinary tract infection type: acute cystitis Hematuria presence: with hematuria Qualified Code(s): N30.01 - Acute cystitis with hematuria (2) Fall Priority: Secondary Status: Acute Comments: Patient has been [facility] Qualifiers: Encounter type: initial encounter Qualified Code(s): W19.XXXA - Unspecified fall, initial encounter (3) CAD (coronary artery disease) Priority: Secondary Status: Chronic Qualifiers: Coronary Disease-Associated Artery/Lesion type: bypass graft [place] vs. transplanted heart: [place] heart Associated angina: without angina Qualified Code(s): I25.810 - Atherosclerosis of coronary artery bypass graft(s) without angina pectoris (4) Bilateral lower extremity edema Priority: Secondary Status: Chronic (5) DM2 (diabetes mellitus, type 2) Priority: Secondary Status: Chronic Qualifiers: Diabetes mellitus complication status: with kidney complications Diabetes mellitus complication detail: with chronic kidney disease Diabetes mellitus intermediate frame tender insulin use: without intermediate frame tender use Chronic kidney disease stage: stage 4 (severe) Qualified Code(s): E11.22 - Type 2 diabetes mellitus with diabetic chronic kidney disease; N18.4 - Chronic kidney disease, stage 4 (severe ); N18.4 - Chronic kidney disease, stage 4 (severe); N18.4 - Chronic kidney disease, stage 4 (severe); N18.4 - Chronic kidney disease, stage 4 (severe) (6) Anemia Priority: Secondary Status: Chronic Qualifiers: Anemia type: unspecified type Qualified Code(s): D64.9 - Anemia, unspecified (7) COPD (chronic obstructive pulmonary disease) Priority: Secondary Status: Chronic Qualifiers: COPD type: unspecified COPD Qualified Code(s): J44.9 - Chronic obstructive pulmonary disease, unspecified (8) CHF (congestive heart failure) Priority: Secondary Status: Chronic Qualifiers: Congestive heart failure type: systolic Congestive heart failure chronicity : chronic Qualified Code(s): I50.22 - Chronic systolic (congestive) heart failure (9) A-fib Priority: Secondary Status: Chronic Qualifiers: Atrial fibrillation type: chronic Qualified Code(s): I48.2 - Chronic atrial fibrillation (10) CKD (chronic kidney disease), stage IV Priority: Secondary Status: Chronic - Discharge Medications Prescriptions: Ciprofloxacin [Cipro] 500 mg PO DAILY #3 tablet Home Medications: Magnesium Oxide [Mgo] 400 mg PO BID 03/05/15 [History] Tamsulosin [Flomax] 0.4 mg PO DAILY 03/05/15 [History] Budesonide/Formoterol 160/4.5 [Symbicort 160/4.5] 2 puff IH BIDR 07/27/15 [ History] Sodium Bicarbonate 1,300 mg PO BID 07/27/15 [History] Carboxymethylcellulose Sodium [Refresh Tears] 1 drop BOTH EYES QID 12/27/15 [ History] Fluticasone Propionate Nasal [Flonase] 1 spray NS DAILY 12/27/15 [History] Furosemide [Lasix] 20 mg PO DAILY PRN 04/20/16 [History] Ondansetron ODT [Zofran ODT] 4 mg SL Q8HR PRN 10/28/16 [History] Ferrous Sulfate [Iron] 325 mg PO DAILY 11/18/16 [History] Latanoprost [Xalatan] 1 drop LEFT EYE HS 11/18/16 [History] Warfarin [Coumadin] 4 mg PO SUMOWETHFR 11/20/16 [History] Ammonium Lactate [Jenny-Hydrolac] 1 appl TP BID 03/23/17 [History] Aspirin Enteric Coated [Aspirin EC] 81 mg PO DAILY 03/23/17 [History] Calcitriol [Rocaltrol] 0.25 mcg PO DAILY 03/23/17 [History] Calcium Carbonate [Calcium] 600 mg PO BID 03/23/17 [History] Cholecalciferol (D-3) [Vitamin D] 2,000 unit PO DAILY 03/23/17 [History] Nut.tx.impaired Digest Fxn [Ensure Clear] 1 bottle PO DAILY 03/23/17 [History] Omeprazole [PriLOSEC] 20 mg PO BID 03/23/17 [History] Quetiapine Fumarate [SEROquel] 25 mg PO HS 03/23/17 [History] Vit C/E/Zn/Coppr/Lutein/Zeaxan [Preservision Areds 2 Softgel] 1 cap PO BID 03/23 [History] Warfarin [Coumadin] 2 mg PO TUSA 03/23/17 [History] Ciprofloxacin [Cipro] 500 mg PO DAILY #3 tablet 03/30/17 [Rx] Allergies/Adverse Reactions: 3 Allergy/AdvReac Type Severity Reaction Status Date / Time cephalexin [From Keflex] AdvReac Vomiting Verified 03/27/17 14:45 promethazine [From Phenergan] AdvReac See Verified 10/28/16 07:29 Comments Date of admission: 03/26/17 16:33 Primary care physician: Francesco Naylor DO Consults: 03/23/17 19:37 Consult to Occupational Therapy [CONS] Routine Comment: Evaluate, develop and implement POC Reason for Consult: functional decline Consult to Physical Therapy [CONS] Routine Comment: Evaluate, develop and implement POC Reason for Consult: functional decline 03/23/17 19:40 Consult to Publicity Writer [CONS] Routine Reason for SW Consult: functional decline, may need short-term rehabilitation 03/23/17 22:26 Consult to Cardiology [CONS] Routine Comment: Consulting Provider: Namita Lange Reason for Consult: Elevated troponin, multiple falls at home, CHF with wall motion abnormalities and history of CAD and [place] Call Completed: No Discharging clinician: Curry Styles Anticipated date of discharge: 03/30/17 - Patient Status Disposition: Transfer Inpatient Rehab Fac Condition: Fair Overall status at discharge: patient is progressing back to baseline - Discharge Instructions Follow Up With: Francesco Naylor DO [Primary Care Provider] - (will wait on d/c plans. Possible ECF ) - Diet and Activity Activity: increase activity as tolerated Diet: advance to your usual diet Hospital course: Mr. Michelle is a 82 year old male with a past medical history of atrial fibrillation on Coumadin, COPD, coronary artery disease, diabetes mellitus, GERD , hypertension, [place], CHF, and CKD who presented to the hospital on 03/23/17 for chief complaint of increasing weakness and a fall the previous night without trauma. His reported that the patient fell the previous night and was unable to get up on his own. She reports that this has happened on multiple occasions in the last month, and he is increasing in his functional decline. He was recently admitted to [facility]. She reported that it was becoming more difficult to care for him. She notes that it is difficult for him to walk and that he has decreasing strength. On presentation, patient had no neurologic deficits, fever, chest pain, abdominal pain, syncope, numbness , tingling, or dizziness. Urinalysis demonstrated trace leukocyte esterase, 15-30 WBC, many bacteria. Urine grew pansensitive Klebsiella. He was started on IV Rocephin 1000 mg on ; this was discontinued on 03/27/17. patient was started on oral ciprofloxacin 500 mg by mouth daily on 03/28/17. On date of discharge, patient is a 7 out of 10 for about treatment. It is likely that patient's altered mental status and falls were caused by his urinary tract infection. His stay in the hospital, patient had pedal edema secondary to CHF. Patient was treated with Lasix and supplemental oxygen as needed. During the course of his stay, patient's pedal edema gradually improved. Initially, patient was unable to speak without falling asleep very quickly. On date of discharge, patient is able to communicate well. He is alert and oriented 3. [facility]. Patient willbe continued on oral ciprofloxacin 500 mg DAILY or 3 days to complete a 10 day course of antibiotic treatment. Vital signs stable on date of discharge. - Time Spent with Patient Total time spent providing and/or coordinating discharge services: Greater than 30 minutes (40 minutes) - Constitutional Vitals: Temp Pulse Resp BP Pulse Ox 97.8 F 60 16 129/71 92 03/29/17 18:53 03/29/17 18:53 03/30/17 11:06 03/29/17 18:53 03/30/17 11:06 General appearance: Present: A&O X 3, underweight, answers questions appropriately - Head Head exam: Present: atraumatic, normocephalic - Eye Eye exam: Present: PERRL, conjuntiva pink, sclera anicteric Pupils: Present: PERRL - Neck Neck exam general surgery: Present: supple, trachea midline. Absent: lymphadenopathy - Respiratory Respiratory exam: Present: CTAB. Absent: accessory muscle use, rales, rhonchi, wheezes - Cardiovascular Cardiovascular exam: Present: RRR, +S1, +S2. Absent: diastolic murmur, gallop, rubs, systolic murmur - Extremities Exam Extremities exam: Present: pedal edema, warm, radial pulses palpable and symmetrical - Neurological Exam Neurological exam: Present: CN II-XII intact, oriented X3, no focal deficits. Absent: pronater drift, facial droop, speech deficit - Skin Skin exam: Present: dry, intact - VTE Reasons for not Prescribing Prophylaxis: Not indicated-Anticoagulated or INR therapeutic Documentation of Mechanical Device: Intermittent pneumatic compression device <JhaveriMargarito - Last Filed: 03/30/17 15:21> Date of Encounter: 03/30/17 Date of admission: 03/26/17 16:33 Primary care physician: Francesco Naylor DO Consults: 03/23/17 19:37 Consult to Occupational Therapy [CONS] Routine Comment: Evaluate, develop and implement POC Reason for Consult: functional decline Consult to Physical Therapy [CONS] Routine Comment: Evaluate, develop and implement POC Reason for Consult: functional decline 03/23/17 19:40 Consult to Publicity Writer [CONS] Routine Reason for SW Consult: functional decline, may need short-term rehabilitation 03/23/17 22:26 Consult to Cardiology [CONS] Routine Comment: Consulting Provider: Namita Lange Reason for Consult: Elevated troponin, multiple falls at home, CHF with wall motion abnormalities and history of CAD and [place] Call Completed: No Hospital course: Mr. Michelle is a 82 year old male - Time Spent with Patient Total time spent providing and/or coordinating discharge services: - Constitutional Vitals: Temp Pulse Resp BP Pulse Ox 97.8 F 60 16 129/71 92 03/29/17 18:53 03/29/17 18:53 03/30/17 11:06 03/29/17 18:53 03/30/17 11:06 - Attending Attestation I performed an independent interview and examination of this patient. I agree with the findings, assessment, and plan of Dr. Styles. A shift to continue Cipro for 3 more days for urinary tract infection. Coumadin has been held due to his malnourished state, advanced age and risk of falls. Patient otherwise is stable for transfer to the facility. Decubitus spent on discharge and coordination of care. All else as per dc summary.
--- NOTE | 2017-03-30 14:32 | Physician Discharge Referral ---
ExtendedCare Referral Info Transfer To: [facility] Provider in Charge after Transfer: PCP Institutional Level of Care: Skilled - Diagnosis (1) UTI (urinary tract infection) Priority: Primary Status: Acute (2) Fall Priority: Primary Status: Acute (3) CAD (coronary artery disease) Priority: Secondary Status: Chronic (4) Bilateral lower extremity edema Priority: Secondary Status: Chronic (5) DM2 (diabetes mellitus, type 2) Priority: Secondary Status: Chronic (6) Anemia Priority: Secondary Status: Chronic (7) COPD (chronic obstructive pulmonary disease) Priority: Secondary Status: Chronic (8) CHF (congestive heart failure) Priority: Secondary Status: Chronic (9) A-fib Priority: Secondary Status: Chronic (10) CKD (chronic kidney disease), stage IV Priority: Secondary Status: Chronic Prognosis: Fair - Transfer Medications Prescriptions: Ciprofloxacin [Cipro] 500 mg PO DAILY #3 tablet Home Medications: Magnesium Oxide [Mgo] 400 mg PO BID 03/05/15 [History] Tamsulosin [Flomax] 0.4 mg PO DAILY 03/05/15 [History] Budesonide/Formoterol 160/4.5 [Symbicort 160/4.5] 2 puff IH BIDR 07/27/15 [ History] Sodium Bicarbonate 1,300 mg PO BID 07/27/15 [History] Carboxymethylcellulose Sodium [Refresh Tears] 1 drop BOTH EYES QID 12/27/15 [ History] Fluticasone Propionate Nasal [Flonase] 1 spray NS DAILY 12/27/15 [History] Furosemide [Lasix] 20 mg PO DAILY PRN 04/20/16 [History] Ondansetron ODT [Zofran ODT] 4 mg SL Q8HR PRN 10/28/16 [History] Ferrous Sulfate [Iron] 325 mg PO DAILY 11/18/16 [History] Latanoprost [Xalatan] 1 drop LEFT EYE HS 11/18/16 [History] Warfarin [Coumadin] 4 mg PO SUMOWETHFR 11/20/16 [History] Ammonium Lactate [Jenny-Hydrolac] 1 appl TP BID 03/23/17 [History] Aspirin Enteric Coated [Aspirin EC] 81 mg PO DAILY 03/23/17 [History] Calcitriol [Rocaltrol] 0.25 mcg PO DAILY 03/23/17 [History] Calcium Carbonate [Calcium] 600 mg PO BID 03/23/17 [History] Cholecalciferol (D-3) [Vitamin D] 2,000 unit PO DAILY 03/23/17 [History] Nut.tx.impaired Digest Fxn [Ensure Clear] 1 bottle PO DAILY 03/23/17 [History] Omeprazole [PriLOSEC] 20 mg PO BID 03/23/17 [History] Quetiapine Fumarate [SEROquel] 25 mg PO HS 03/23/17 [History] Vit C/E/Zn/Coppr/Lutein/Zeaxan [Preservision Areds 2 Softgel] 1 cap PO BID 03/23 [History] Warfarin [Coumadin] 2 mg PO TUSA 03/23/17 [History] Ciprofloxacin [Cipro] 500 mg PO DAILY #3 tablet 03/30/17 [Rx] Allergies/Adverse Reactions: 3 Allergy/AdvReac Type Severity Reaction Status Date / Time cephalexin [From Keflex] AdvReac Vomiting Verified 03/27/17 14:45 promethazine [From Phenergan] AdvReac See Verified 10/28/16 07:29 Comments - Respiratory Orders Smoking Cessation: Smoking cessation has been advised. For more information, call the [place] Tobacco Quit Line at 5-112-QFNB-NOW. - Mobility Orders Ambulate - Rehabiliation Orders Rehab Potential: Fair - Diet Orders Regular CERTIFICATION: I certify that the transfer of the above named patient to an Extended Care Facility is necessary for the continuing treatment of the diagnosis listed. The above information is true and accurate reflection of patient's current condition. Confidential - Redisclosure prohibited without a patient's written consent.
[2017-03-30 15:41] VITALS: BP 101/53
== END 2017-03-30 18:50 | DRG 690 ==
LOC: 2ANU → SUATTDRO 17:31
PROVIDERS: ADMIT Internal Medicine; ATTEND Internal Medicine